=== PATIENT | female | born 1965 | race Caucasian/White ===

== ENCOUNTER 2022-07-05 14:54 | Observation (INO) | payer MEDICAID, SELFPAY ==
[2022-07-05] VITALS (11 sets, daily range): BP systolic 109–149; BP diastolic 64–85; PULSE 70–109; RESP 9–18; TEMP 36.6; O2SAT 2–100; BMI 38.2
--- NOTE | 2022-07-05 15:20 | ECG_ITS ---
Test Reason : FALL Blood Pressure : / mmHG Vent. Rate : 106 BPM Atrial Rate : 106 BPM P-R Int : 170 ms QRS Dur : 114 ms QT Int : 374 ms P-R-T Axes : 050 025 051 degrees QTc Int : 496 ms Sinus tachycardia Incomplete right bundle branch block Cannot rule out Inferior infarct , age undetermined Abnormal ECG No previous ECGs available Referred By: Mery Marvin Electronically Signed By:Scott Valencia
--- NOTE | 2022-07-05 15:27 | PC.NURSE ---
Pt sleepy, arousable to firm sternal rub. Snoring. VSS, placed on 2lpm via nc 93-94%. Collar intact. Sister states pt has been sleepy all day since this AM but came from [facility] assume dpt was tired however tired all day. Vodka spilled where pt found on floor and per sister Catia pt has h/o mixing ETOH with rx meds. Unk if street drug use. Sinus tach on tele. RR 10, [id number] 40
[2022-07-05 16:11] LABS: MANUAL DIFF FLAG NO
[2022-07-05 16:22] LABS: Basophils Percent Auto 0.3 % (0-2); Eosinophils Absolute Auto 0.2 X10*3/uL (0.0-0.4); Eosinophils Percent Auto 1.9 % (0-4); Hematocrit 39.3 % (37.0-47.0); Hemoglobin 13.4 g/dl (12.0-16.0); Imm Gran Abs Auto 0.08 X10*3/uL (0.00-0.03); Imm Gran Pct Auto 0.8 % (0.0-0.4); Lymphocytes Percent Auto 29.7 % (20-40); Mean Corpuscular HGB Conc 34.1 g/dl (31.0-35.0); Mean Corpuscular Hemoglobin 33.2 pg (27.0-33.0); Mean Corpuscular Volume 97.3 fL (80.0-98.0); Mean Platelet Volume 8.4 fL (9.4-12.3); Monocytes Absolute Auto 0.6 X10*3/uL (0.1-1.2); Monocytes Percent Auto 6.4 % (2-11); Neutrophils Absolute Auto 6.1 x10*3/uL (2.0-8.3); Neutrophils Percent Auto 60.9 % (45-73); Platelet Count 219 X10*3/uL (160-400); Red Blood Count 4.04 X10*6/uL (4.20-5.50); White Blood Count 9.9 X10*3/uL (4.8-10.8)
[2022-07-05 16:32] LABS: Acetaminophen LAB < 1 mcg/mL (<30); Salicylate < 5.0 mg/dL (15-30)
[2022-07-05 16:36] LABS: Alanine Aminotransferase 24 U/L (0-31); Albumin Level 4.2 g/dL (3.5-5.0); Alkaline Phosphatase 93 U/L (39-117); Anion Gap 13 (12-20); Aspartate Amino Transferase 22 U/L (5-31); Bilirubin Total 0.3 mg/dL (0.0-1.0); Blood Urea Nitrogen 15 mg/dL (9-16); Calcium 9.4 mg/dL (8.4-10.2); Carbon Dioxide 28 mmol/L (22-29); Chloride 103 mmol/L (96-108); Creatinine Clr Calc Pharmacy 105.5; Estimated Glomerular Filt Rate > 60; Ethanol < 10 mg/dL; Glucose Random 90 mg/dL (60-115); Potassium 3.8 mmol/L (3.3-5.1); Sodium 140 mmol/L (135-145); Total Protein 6.7 g/dL (6.5-8.0)
--- NOTE | 2022-07-05 16:39 | PC.NURSE ---
Pt remains sleepy, requires firm sternal rub to open eyes. NSR on tele, rate 99. Color pwd. Awaiting CT results.
--- NOTE | 2022-07-05 17:32 | ED.AMS ---
HPI - Altered Mental Status General Chief Complaint: Altered Mental Status <Mery Marvin NP - Last Filed: 07/05/22 18:25> Stated Complaint: poss overdose, poss fall per EMS <Mery Marvin NP - Last Filed: 07/05/22 18:25> Time Seen by Provider: 07/05/22 15:18 <Mery Marvin PRESS CLEANER - Last Filed: 07/05/22 18:25> Source: family and EMS <Mery Marvin NP - Last Filed: 07/05/22 18:25> Mode of arrival: EMS <Mery Marvin NP - Last Filed: 07/05/22 18:25> Limitations: altered mental status <Mery Marvin NP - Last Filed: 07/05/22 18:25> History of Present Illness HPI narrative: 56-year-old female with past medical history of insomnia and depression presents to the emergency department by EMS after being found, by her sister, unresponsive on the floor near a broken vodka bottle with vodka spilled on the floor per sister. Her sister states the patient is visiting from the [facility] and arrived early this morning. The patient's neice picked her up from the airport at 3:00 a.m. and the patient was slurring her speech at the time. The sister saw the patient this morning and the patient was acting 'tired' and falling asleep while speaking. She sent her downstairs to take a nap and when she came back up stairs at 12:00 p.m. she continued to act as if she was tired and falling asleep while speaking. The sister states that around 230 she her movement down stairs where her sister was sleeping and went to check on her and found her on the floor unresponsive with a broken vodka bottle. The sister denies any known cardiac, pulmonary, neurological, musculoskeletal history. It is unknown whether she has been recently ill or had sick contacts. <Mery Marvin NP - Last Filed: 07/05/22 18:25> MD complaint: altered mental status <Mery Marvin NP - Last Filed: 07/05/22 18:25> Onset (ago): hour(s) (1) <Mery Marvin NP - Last Filed: 07/05/22 18:25> Timing confirmed by: family member <Mery Marvin NP - Last Filed: 07/05/22 18:25> Consistency of symptoms: constant <Mery Marvin NP - Last Filed: 07/05/22 18:25> Related Data Allergies/Adverse Reactions: Allergies Allergy/AdvReac Type Severity Reaction Status Date / Time Unable to Assess Allergy Verified 07/05/22 15:14 <Mery Marvin NP - Last Filed: 07/05/22 18:25> Review of Systems Review of Systems: Yes Unobtainable due to mental status <Mery Marvin NP - Last Filed: 07/05/22 18:25> PMFSH Past Medical History Source: obtained from family <Mery Marvin NP - Last Filed: 07/05/22 18:25> Social History Social History: Social History Alcohol intake: current Smoked in Last 30 Days: Yes Use of substances other than those prescribed or required for medical reasons: Unknown Advance Directives: No Advance Directives Information Provided: Yes <Mery Marvin NP - Last Filed: 07/05/22 18:25> Physical Exam ED Vital Signs: Vital Signs - 24 hr 07/05/22 15:14 07/05/22 15:25 07/05/22 16:38 Temperature Pulse Rate 109 H 107 H 99 Respiratory Rate 18 12 10 L Blood Pressure 118/67 109/64 118/73 Pulse Oximetry 92 94 2 L Oxygen Delivery Method Room Air Nasal Cannula Nasal Cannula Oxygen Flow Rate 2 2 07/05/22 18:00 07/05/22 18:26 07/05/22 20:42 Temperature 97.8 F Pulse Rate 102 H 105 H 94 Respiratory Rate 10 L 16 9 L Blood Pressure 143/85 H 121/68 127/70 Pulse Oximetry 100 100 95 Oxygen Delivery Method Nasal Cannula Nasal Cannula Nasal Cannula Oxygen Flow Rate 2 2 2 07/05/22 21:17 07/05/22 21:40 07/05/22 22:18 Temperature Pulse Rate 70 Respiratory Rate 11 L 14 11 L Blood Pressure Pulse Oximetry 97 Oxygen Delivery Method Nasal Cannula Oxygen Flow Rate 2 BMI result Body Mass Index 38.2 <Mery Marvin NP - Last Filed: 07/05/22 18:25> Vital Signs - 24 hr 07/05/22 15:14 07/05/22 15:25 07/05/22 16:38 Temperature Pulse Rate 109 H 107 H 99 Respiratory Rate 18 12 10 L Blood Pressure 118/67 109/64 118/73 Pulse Oximetry 92 94 2 L Oxygen Delivery Method Room Air Nasal Cannula Nasal Cannula Oxygen Flow Rate 2 2 07/05/22 18:00 07/05/22 18:26 07/05/22 20:42 Temperature 97.8 F Pulse Rate 102 H 105 H 94 Respiratory Rate 10 L 16 9 L Blood Pressure 143/85 H 121/68 127/70 Pulse Oximetry 100 100 95 Oxygen Delivery Method Nasal Cannula Nasal Cannula Nasal Cannula Oxygen Flow Rate 2 2 2 07/05/22 21:17 07/05/22 21:40 07/05/22 22:18 Temperature Pulse Rate 70 Respiratory Rate 11 L 14 11 L Blood Pressure Pulse Oximetry 97 Oxygen Delivery Method Nasal Cannula Oxygen Flow Rate 2 BMI result Body Mass Index 38.2 <David Robertson PA - Last Filed: 07/05/22 23:21> Const Nutritional Appearance: well nourished <Mery Marvin NP - Last Filed: 07/05/22 18:25> Limitations: altered mental status <Mery Marvin NP - Last Filed: 07/05/22 18:25> HENWV Head: Yes normal to inspection, Yes normocephalic and Yes atraumatic <Mery Marvin NP - Last Filed: 07/05/22 18:25> Ears: hearing grossly normal bilaterally and external ears normal <Mery Marvin NP - Last Filed: 07/05/22 18:25> General nose exam: Normal external nose present and Normal nares present <Mery Marvin NP - Last Filed: 07/05/22 18:25> Face and sinus: Yes normal facial exam and Yes face symmetric <Mery Marvin NP - Last Filed: 07/05/22 18:25> Mouth: Normal oral and palatal mucosa present <Mery Olivernik, PRESS CLEANER - Last Filed: 07/05/22 18:25> Throat: Yes posterior oropharynx normal <Merydeedee Marvin, PRESS CLEANER - Last Filed: 07/05/22 18:25> Eyes General: appearance normal, both eyes and all related structures <Mery Marvin, PRESS CLEANER - Last Filed: 07/05/22 18:25> Visual Brady: normal visual brady by confrontation <Mery Marvin, PRESS CLEANER - Last Filed: 07/05/22 18:25> Alignment and Position: alignment normal <Mery Yon, PRESS CLEANER - Last Filed: 07/05/22 18:25> Periorbital: periorbital findings normal <Mery Yon, PRESS CLEANER - Last Filed: 07/05/22 18:25> Eyelids: Yes eyelids normal <Merydeedee Marvin, PRESS CLEANER - Last Filed: 07/05/22 18:25> Conjunctivae: conjunctivae normal <Merychon Marvin, PRESS CLEANER - Last Filed: 07/05/22 18:25> Sclerae: sclerae normal <Mery Yon, PRESS CLEANER - Last Filed: 07/05/22 18:25> Corneas: corneas normal <Merychon Marvin, PRESS CLEANER - Last Filed: 07/05/22 18:25> Pupils: Equal, round and reactive pupils present <Merydeedee Marvin, PRESS CLEANER - Last Filed: 07/05/22 18:25> EOM: EOMs intact bilaterally <Merydeedee Marvin, PRESS CLEANER - Last Filed: 07/05/22 18:25> Neck Neck: Yes normal visual inspection and Yes no lymphadenopathy <Merychon Mavrin, PRESS CLEANER - Last Filed: 07/05/22 18:25> Chest Chest palpation & inspection: normal inspection of the chest <Merydeedee Marvin, PRESS CLEANER - Last Filed: 07/05/22 18:25> Resp Effort & Inspection: normal respiratory effort <Merydeedee Marvin, PRESS CLEANER - Last Filed: 07/05/22 18:25> Auscultation: clear to auscultation bilaterally, no crackles, no rhonchi and no wheezes <Mery Yon, PRESS CLEANER - Last Filed: 07/05/22 18:25> Cardio Rate: regular rate <Mery Marvin PRESS CLEANER - Last Filed: 07/05/22 18:25> Rhythm: regular rhythm <Merychon Marvin PRESS CLEANER - Last Filed: 07/05/22 18:25> GI Inspection: Yes normal to inspection <Mery Marvin PRESS CLEANER - Last Filed: 07/05/22 18:25> Palpation (GI): Soft to palpation <Merydeedee Marvin PRESS CLEANER - Last Filed: 07/05/22 18:25> Auscultation: normal bowel sounds <Mery Marvin PRESS CLEANER - Last Filed: 07/05/22 18:25> Back/Spine/Pelvis Back: No erythema, No warmth and No ecchymosis <Mery Marvin PRESS CLEANER - Last Filed: 07/05/22 18:25> Skin General skin exam: no rashes or lesions noted <Mery Marvin PRESS CLEANER - Last Filed: 07/05/22 18:25> Neuro Cranial nerves: Yes Equal, round and reactive pupils present <Mery Marvin PRESS CLEANER - Last Filed: 07/05/22 18:25> Course Course Course Narrative: 1525: Poison control contacted regarding possible Amitriptyline ingestion with recommendations given. 1645: Sister at bedside with pt's medications. Bottle with Amitriptyline with greater than 100 pills with Oxycodone mixed in the bottle. Empty package of Zopiclone brought in with pt's belongings. Contacted poison Control regarding Amitriptyline, Oxycodone, and Zopiclone ingestion. Recommended to continue monitoring serial EKGs every 2 hours. Discussed giving pt Narcan with Poison Control with concern of sending patient into withdrawl symptoms. 1745: Patient straight cathed to obtain urinalysis and BILL. Patient more responsive to stimuli, however; falls asleep quickly and is unable to answer questions due to level of somnolence. 1810: Sign out given to Hanna RODRIGUEZ with no unanswered questions. <Mery Marvin PRESS CLEANER - Last Filed: 07/05/22 18:25> Reevaluation(s) Reevaluation #1: I took over care for patient, patient responded well to Narcan. Her QTC was slightly prolonged therefore I gave magnesium. I also given amp of bicarb. Patient is awake, alert and oriented x4. Agreeable to admission. Patient will be admitted to the hospitalist <MICHAEL Rico - Last Filed: 07/05/22 23:21> Time: 23:21 <MICHAEL Rico - Last Filed: 07/05/22 23:21> Medications Administered Discontinued Medications Generic Name Dose Route Start Last Admin Trade Name Freq PRN Reason Stop Dose Admin Magnesium Sulfate 2 gm in 50 mls @ 25 mls/hr 07/05/22 20:54 07/05/22 21:15 Magnesium Sulfate/H2o IV 07/05/22 22:53 25 mls/hr ONCE ONE Administration Naloxone HCl 4 mg 07/05/22 18:12 07/05/22 18:27 Naloxone Hcl Nasal 4 Mg [place] NOSTRILALT 07/05/22 18:13 Not Given ONCE ONE Naloxone HCl 0.4 mg 07/05/22 18:25 07/05/22 18:27 Naloxone Hcl 0.4 Mg/Ml Vial IVPUSH 07/05/22 18:26 0.4 mg ONCE ONE Administration Naloxone HCl 0.4 mg 07/05/22 20:53 07/05/22 21:07 Naloxone Hcl 0.4 Mg/Ml Vial IVPUSH 07/05/22 20:54 0.4 mg STAT STA Administration Sodium Bicarbonate 50 meq 07/05/22 20:53 07/05/22 21:09 Sodium Bicarbonate 8.4% 50 Meq/50 Ml Syringe IVPUSH 07/05/22 20:54 50 meq ONCE ONE Administration <Mery Marvin NP - Last Filed: 07/05/22 18:25> Medications Administered Discontinued Medications Generic Name Dose Route Start Last Admin Trade Name Freq PRN Reason Stop Dose Admin Magnesium Sulfate 2 gm in 50 mls @ 25 mls/hr 07/05/22 20:54 07/05/22 21:15 Magnesium Sulfate/H2o IV 07/05/22 22:53 25 mls/hr ONCE ONE Administration Naloxone HCl 4 mg 07/05/22 18:12 07/05/22 18:27 Naloxone Hcl Nasal 4 Mg [place] NOSTRILALT 07/05/22 18:13 Not Given ONCE ONE Naloxone HCl 0.4 mg 07/05/22 18:25 07/05/22 18:27 Naloxone Hcl 0.4 Mg/Ml Vial IVPUSH 07/05/22 18:26 0.4 mg ONCE ONE Administration Naloxone HCl 0.4 mg 07/05/22 20:53 07/05/22 21:07 Naloxone Hcl 0.4 Mg/Ml Vial IVPUSH 07/05/22 20:54 0.4 mg STAT STA Administration Sodium Bicarbonate 50 meq 07/05/22 20:53 07/05/22 21:09 Sodium Bicarbonate 8.4% 50 Meq/50 Ml Syringe IVPUSH 07/05/22 20:54 50 meq ONCE ONE Administration <MICHAEL Rico - Last Filed: 07/05/22 23:21> Medical Decision Making Medical Decision Making [facility] Narrative: 56-year-old female with past medical history of insomnia and depression presents to the emergency department by EMS after being found, by her sister, unresponsive on the floor near a broken vodka bottle with vodka spilled on the floor per sister. Poison control contacted regarding possible toxic ingestion with recommendations give. EKG showing sinus tachycardia with incomplete right bundle-branch block QRS duration 114 QTC 496. Per poison Control will continue serial EKGs every 2 hours. Discuss given Narcan with Poison Control with concern of patient in to withdrawl symptoms. CT head and cervical spine with no acute intracranial finding, no fracture or malalignment of the cervical spine, mild degenerative change. Chest xray showing hypo inflation, no pneumonia or edema. Hematology and chemistry unremarkable. Urinalysis showing no infectious process. Urine salicylates, acetaminophen, and ethyl alcohol on concerning. BILL positive for opioids and cocaine. Narcan to be given. Pending repeat EKG at this time. <Mery Marvin NP - Last Filed: 07/05/22 18:25> Lab Data [facility] Lab Attestation statement: I reviewed the patient's lab results. <Mery Marvin NP - Last Filed: 07/05/22 18:25> Result Diagrams: : 07/05/22 16:07 07/05/22 16:07 <Mery Marvin NP - Last Filed: 07/05/22 18:25> Labs: Lab Results 07/05/22 07/05/22 07/05/22 Range/Units 15:31 16:07 16:07 WBC 9.9 (4.8-10.8) X10*3/uL RBC 4.04 L (4.20-5.50) X10*6/uL Hgb 13.4 (12.0-16.0) g/dl Hct 39.3 (37.0-47.0) % MCV 97.3 (80.0-98.0) fL MCH 33.2 H (27.0-33.0) pg MCHC 34.1 (31.0-35.0) g/dl RDW 13.0 (11.0-16.0) % Plt Count 219 (160-400) X10*3/uL MPV 8.4 L (9.4-12.3) fL Immature Gran % (Auto) 0.8 H (0.0-0.4) % Neut % (Auto) 60.9 (45-73) % Lymph % (Auto) 29.7 (20-40) % Lea % (Auto) 6.4 (2-11) % Eos % (Auto) 1.9 (0-4) % Baso % (Auto) 0.3 (0-2) % Lymph # (Auto) 3.0 (1.2-4.9) X10*3/uL [place] # (Auto) 0.6 (0.1-1.2) X10*3/uL Eos # (Auto) 0.2 (0.0-0.4) X10*3/uL Baso # (Auto) 0.0 (0.0-0.2) X10*3/uL Abs Immat Gran (auto) 0.08 H (0.00-0.03) X10*3/uL Absolute Neuts (auto) 6.1 (2.0-8.3) x10*3/uL Absolute Nucleated RBC 0.000 (0.0-0.012) X10*3/uL Nucleated RBC % (auto) 0.0 (0.0-0.2) /100WBC O2 Saturation % ABG pH at Pt Temp (7.35-7.45) ABG pCO2 at Pt Temp (32-45) mmHg ABG pO2 at Pt Temp (83-108) mmHg ABG HCO3 (22-26) mmol/L ABG Base Excess (Actual) mmol/L VBG pH (7.32-7.43) VBG pCO2 mmHg VBG pO2 mmHg VBG HCO3 (22-26) mmol/L VBG O2 Saturation % VBG Base Excess mmol/L Sodium 140 (135-145) mmol/L Potassium 3.8 (3.3-5.1) mmol/L Chloride 103 (96-108) mmol/L Carbon Dioxide 28 (22-29) mmol/L Anion Gap 13 (12-20) BUN 15 (9-16) mg/dL Creatinine 0.78 (0.5-1.4) mg/dL Estim Creat Clear Calc 105.5 Estimated GFR > 60 POC Glucose 106 (60-115) mg/dL Random Glucose 90 (60-115) mg/dL Calcium 9.4 (8.4-10.2) mg/dL Magnesium 2.0 (1.6-2.6) mg/dL Total Bilirubin 0.3 (0.0-1.0) mg/dL AST 22 (5-31) U/L ALT 24 (0-31) U/L Alkaline Phosphatase 93 (39-117) U/L Total Creatine Kinase 138 (26-140) U/L Total Protein 6.7 (6.5-8.0) g/dL Albumin 4.2 (3.5-5.0) g/dL Urine Color Urine Appearance Urine pH (5.0-9.0) Ur Specific [place] (1.005-1.025) Urine Protein (Neg-Trace) mg/dL Urine Glucose (UA) (Negative) mg/dL Urine Ketones (Negative) mg/dL Urine Blood (Negative) Urine Nitrite (Negative) Ur Leukocyte Esterase (Negative) Salicylates (15-30) mg/dL Urine Opiates Screen (Not Detect) Urine Fentanyl Screen (Not Detect) Acetaminophen (<30) mcg/mL Ur Barbiturates Screen (Not Detect) Ur Phencyclidine Scrn (Not Detect) Ur Amphetamines Screen (Not Detect) U Benzodiazepines Scrn (Not Detect) Urine Cocaine Screen (Not Detect) U Marijuana (THC) Screen (Not Detect) Ethyl Alcohol < 10 mg/dL 07/05/22 07/05/22 07/05/22 Range/Units 16:07 17:54 17:54 WBC (4.8-10.8) X10*3/uL RBC (4.20-5.50) X10*6/uL Hgb (12.0-16.0) g/dl Hct (37.0-47.0) % MCV (80.0-98.0) fL MCH (27.0-33.0) pg MCHC (31.0-35.0) g/dl RDW (11.0-16.0) % Plt Count (160-400) X10*3/uL MPV (9.4-12.3) fL Immature Gran % (Auto) (0.0-0.4) % Neut % (Auto) (45-73) % Lymph % (Auto) (20-40) % Lea % (Auto) (2-11) % Eos % (Auto) (0-4) % Baso % (Auto) (0-2) % Lymph # (Auto) (1.2-4.9) X10*3/uL [place] # (Auto) (0.1-1.2) X10*3/uL Eos # (Auto) (0.0-0.4) X10*3/uL Baso # (Auto) (0.0-0.2) X10*3/uL Abs Immat Gran (auto) (0.00-0.03) X10*3/uL Absolute Neuts (auto) (2.0-8.3) x10*3/uL Absolute Nucleated RBC (0.0-0.012) X10*3/uL Nucleated RBC % (auto) (0.0-0.2) /100WBC O2 Saturation % ABG pH at Pt Temp (7.35-7.45) ABG pCO2 at Pt Temp (32-45) mmHg ABG pO2 at Pt Temp (83-108) mmHg ABG HCO3 (22-26) mmol/L ABG Base Excess (Actual) mmol/L VBG pH (7.32-7.43) VBG pCO2 mmHg VBG pO2 mmHg VBG HCO3 (22-26) mmol/L VBG O2 Saturation % VBG Base Excess mmol/L Sodium (135-145) mmol/L Potassium (3.3-5.1) mmol/L Chloride (96-108) mmol/L Carbon Dioxide (22-29) mmol/L Anion Gap (12-20) BUN (9-16) mg/dL Creatinine (0.5-1.4) mg/dL Estim Creat Clear Calc Estimated GFR POC Glucose (60-115) mg/dL Random Glucose (60-115) mg/dL Calcium (8.4-10.2) mg/dL Magnesium (1.6-2.6) mg/dL Total Bilirubin (0.0-1.0) mg/dL AST (5-31) U/L ALT (0-31) U/L Alkaline Phosphatase (39-117) U/L Total Creatine Kinase (26-140) U/L Total Protein (6.5-8.0) g/dL Albumin (3.5-5.0) g/dL Urine Color Yellow Urine Appearance Clear Urine pH 5.5 (5.0-9.0) Ur Specific [place] 1.010 (1.005-1.025) Urine Protein Negative (Neg-Trace) mg/dL Urine Glucose (UA) Negative (Negative) mg/dL Urine Ketones Negative (Negative) mg/dL Urine Blood Negative (Negative) Urine Nitrite Negative (Negative) Ur Leukocyte Esterase Negative (Negative) Salicylates < 5.0 L (15-30) mg/dL Urine Opiates Screen POSITIVE H (Not Detect) Urine Fentanyl Screen Not Detected (Not Detect) Acetaminophen < 1 (<30) mcg/mL Ur Barbiturates Screen Not Detected (Not Detect) Ur Phencyclidine Scrn Not Detected (Not Detect) Ur Amphetamines Screen Not Detected (Not Detect) U Benzodiazepines Scrn Not Detected (Not Detect) Urine Cocaine Screen POSITIVE H (Not Detect) U Marijuana (THC) Screen Not Detected (Not Detect) Ethyl Alcohol mg/dL 07/05/22 07/05/22 Range/Units 21:08 22:41 WBC (4.8-10.8) X10*3/uL RBC (4.20-5.50) X10*6/uL Hgb (12.0-16.0) g/dl Hct (37.0-47.0) % MCV (80.0-98.0) fL MCH (27.0-33.0) pg MCHC (31.0-35.0) g/dl RDW (11.0-16.0) % Plt Count (160-400) X10*3/uL MPV (9.4-12.3) fL Immature Gran % (Auto) (0.0-0.4) % Neut % (Auto) (45-73) % Lymph % (Auto) (20-40) % Lea % (Auto) (2-11) % Eos % (Auto) (0-4) % Baso % (Auto) (0-2) % Lymph # (Auto) (1.2-4.9) X10*3/uL Lea # (Auto) (0.1-1.2) X10*3/uL Eos # (Auto) (0.0-0.4) X10*3/uL Baso # (Auto) (0.0-0.2) X10*3/uL Abs Immat Gran (auto) (0.00-0.03) X10*3/uL Absolute Neuts (auto) (2.0-8.3) x10*3/uL Absolute Nucleated RBC (0.0-0.012) X10*3/uL Nucleated RBC % (auto) (0.0-0.2) /100WBC O2 Saturation 94.0 % ABG pH at Pt Temp 7.43 (7.35-7.45) ABG pCO2 at Pt Temp 38 (32-45) mmHg ABG pO2 at Pt Temp 77 L (83-108) mmHg ABG HCO3 26 (22-26) mmol/L ABG Base Excess (Actual) 1.9 mmol/L VBG pH 7.34 (7.32-7.43) VBG pCO2 52 mmHg VBG pO2 50 mmHg VBG HCO3 28 H (22-26) mmol/L VBG O2 Saturation 80.0 % VBG Base Excess 2.2 mmol/L Sodium (135-145) mmol/L Potassium (3.3-5.1) mmol/L Chloride (96-108) mmol/L Carbon Dioxide (22-29) mmol/L Anion Gap (12-20) BUN (9-16) mg/dL Creatinine (0.5-1.4) mg/dL Estim Creat Clear Calc Estimated GFR POC Glucose (60-115) mg/dL Random Glucose (60-115) mg/dL Calcium (8.4-10.2) mg/dL Magnesium (1.6-2.6) mg/dL Total Bilirubin (0.0-1.0) mg/dL AST (5-31) U/L ALT (0-31) U/L Alkaline Phosphatase (39-117) U/L Total Creatine Kinase (26-140) U/L Total Protein (6.5-8.0) g/dL Albumin (3.5-5.0) g/dL Urine Color Urine Appearance Urine pH (5.0-9.0) Ur Specific [place] (1.005-1.025) Urine Protein (Neg-Trace) mg/dL Urine Glucose (UA) (Negative) mg/dL Urine Ketones (Negative) mg/dL Urine Blood (Negative) Urine Nitrite (Negative) Ur Leukocyte Esterase (Negative) Salicylates (15-30) mg/dL Urine Opiates Screen (Not Detect) Urine Fentanyl Screen (Not Detect) Acetaminophen (<30) mcg/mL Ur Barbiturates Screen (Not Detect) Ur Phencyclidine Scrn (Not Detect) Ur Amphetamines Screen (Not Detect) U Benzodiazepines Scrn (Not Detect) Urine Cocaine Screen (Not Detect) U Marijuana (THC) Screen (Not Detect) Ethyl Alcohol mg/dL <Mery Marvin NP - Last Filed: 07/05/22 18:25> Lab Results 07/05/22 07/05/22 07/05/22 Range/Units 15:31 16:07 16:07 WBC 9.9 (4.8-10.8) X10*3/uL RBC 4.04 L (4.20-5.50) X10*6/uL Hgb 13.4 (12.0-16.0) g/dl Hct 39.3 (37.0-47.0) % MCV 97.3 (80.0-98.0) fL MCH 33.2 H (27.0-33.0) pg MCHC 34.1 (31.0-35.0) g/dl RDW 13.0 (11.0-16.0) % Plt Count 219 (160-400) X10*3/uL MPV 8.4 L (9.4-12.3) fL Immature Gran % (Auto) 0.8 H (0.0-0.4) % Neut % (Auto) 60.9 (45-73) % Lymph % (Auto) 29.7 (20-40) % [place] % (Auto) 6.4 (2-11) % Eos % (Auto) 1.9 (0-4) % Baso % (Auto) 0.3 (0-2) % Lymph # (Auto) 3.0 (1.2-4.9) X10*3/uL [place] # (Auto) 0.6 (0.1-1.2) X10*3/uL Eos # (Auto) 0.2 (0.0-0.4) X10*3/uL Baso # (Auto) 0.0 (0.0-0.2) X10*3/uL Abs Immat Gran (auto) 0.08 H (0.00-0.03) X10*3/uL Absolute Neuts (auto) 6.1 (2.0-8.3) x10*3/uL Absolute Nucleated RBC 0.000 (0.0-0.012) X10*3/uL Nucleated RBC % (auto) 0.0 (0.0-0.2) /100WBC O2 Saturation % ABG pH at Pt Temp (7.35-7.45) ABG pCO2 at Pt Temp (32-45) mmHg ABG pO2 at Pt Temp (83-108) mmHg ABG HCO3 (22-26) mmol/L ABG Base Excess (Actual) mmol/L VBG pH (7.32-7.43) VBG pCO2 mmHg VBG pO2 mmHg VBG HCO3 (22-26) mmol/L VBG O2 Saturation % VBG Base Excess mmol/L Sodium 140 (135-145) mmol/L Potassium 3.8 (3.3-5.1) mmol/L Chloride 103 (96-108) mmol/L Carbon Dioxide 28 (22-29) mmol/L Anion Gap 13 (12-20) BUN 15 (9-16) mg/dL Creatinine 0.78 (0.5-1.4) mg/dL Estim Creat Clear Calc 105.5 Estimated GFR > 60 POC Glucose 106 (60-115) mg/dL Random Glucose 90 (60-115) mg/dL Calcium 9.4 (8.4-10.2) mg/dL Magnesium 2.0 (1.6-2.6) mg/dL Total Bilirubin 0.3 (0.0-1.0) mg/dL AST 22 (5-31) U/L ALT 24 (0-31) U/L Alkaline Phosphatase 93 (39-117) U/L Total Creatine Kinase 138 (26-140) U/L Total Protein 6.7 (6.5-8.0) g/dL Albumin 4.2 (3.5-5.0) g/dL Urine Color Urine Appearance Urine pH (5.0-9.0) Ur Specific [place] (1.005-1.025) Urine Protein (Neg-Trace) mg/dL Urine Glucose (UA) (Negative) mg/dL Urine Ketones (Negative) mg/dL Urine Blood (Negative) Urine Nitrite (Negative) Ur Leukocyte Esterase (Negative) Salicylates (15-30) mg/dL Urine Opiates Screen (Not Detect) Urine Fentanyl Screen (Not Detect) Acetaminophen (<30) mcg/mL Ur Barbiturates Screen (Not Detect) Ur Phencyclidine Scrn (Not Detect) Ur Amphetamines Screen (Not Detect) U Benzodiazepines Scrn (Not Detect) Urine Cocaine Screen (Not Detect) U Marijuana (THC) Screen (Not Detect) Ethyl Alcohol < 10 mg/dL 07/05/22 07/05/22 07/05/22 Range/Units 16:07 17:54 17:54 WBC (4.8-10.8) X10*3/uL RBC (4.20-5.50) X10*6/uL Hgb (12.0-16.0) g/dl Hct (37.0-47.0) % MCV (80.0-98.0) fL MCH (27.0-33.0) pg MCHC (31.0-35.0) g/dl RDW (11.0-16.0) % Plt Count (160-400) X10*3/uL MPV (9.4-12.3) fL Immature Gran % (Auto) (0.0-0.4) % Neut % (Auto) (45-73) % Lymph % (Auto) (20-40) % [place] % (Auto) (2-11) % Eos % (Auto) (0-4) % Baso % (Auto) (0-2) % Lymph # (Auto) (1.2-4.9) X10*3/uL Lea # (Auto) (0.1-1.2) X10*3/uL Eos # (Auto) (0.0-0.4) X10*3/uL Baso # (Auto) (0.0-0.2) X10*3/uL Abs Immat Gran (auto) (0.00-0.03) X10*3/uL Absolute Neuts (auto) (2.0-8.3) x10*3/uL Absolute Nucleated RBC (0.0-0.012) X10*3/uL Nucleated RBC % (auto) (0.0-0.2) /100WBC O2 Saturation % ABG pH at Pt Temp (7.35-7.45) ABG pCO2 at Pt Temp (32-45) mmHg ABG pO2 at Pt Temp (83-108) mmHg ABG HCO3 (22-26) mmol/L ABG Base Excess (Actual) mmol/L VBG pH (7.32-7.43) VBG pCO2 mmHg VBG pO2 mmHg VBG HCO3 (22-26) mmol/L VBG O2 Saturation % VBG Base Excess mmol/L Sodium (135-145) mmol/L Potassium (3.3-5.1) mmol/L Chloride (96-108) mmol/L Carbon Dioxide (22-29) mmol/L Anion Gap (12-20) BUN (9-16) mg/dL Creatinine (0.5-1.4) mg/dL Estim Creat Clear Calc Estimated GFR POC Glucose (60-115) mg/dL Random Glucose (60-115) mg/dL Calcium (8.4-10.2) mg/dL Magnesium (1.6-2.6) mg/dL Total Bilirubin (0.0-1.0) mg/dL AST (5-31) U/L ALT (0-31) U/L Alkaline Phosphatase (39-117) U/L Total Creatine Kinase (26-140) U/L Total Protein (6.5-8.0) g/dL Albumin (3.5-5.0) g/dL Urine Color Yellow Urine Appearance Clear Urine pH 5.5 (5.0-9.0) Ur Specific [place] 1.010 (1.005-1.025) Urine Protein Negative (Neg-Trace) mg/dL Urine Glucose (UA) Negative (Negative) mg/dL Urine Ketones Negative (Negative) mg/dL Urine Blood Negative (Negative) Urine Nitrite Negative (Negative) Ur Leukocyte Esterase Negative (Negative) Salicylates < 5.0 L (15-30) mg/dL Urine Opiates Screen POSITIVE H (Not Detect) Urine Fentanyl Screen Not Detected (Not Detect) Acetaminophen < 1 (<30) mcg/mL Ur Barbiturates Screen Not Detected (Not Detect) Ur Phencyclidine Scrn Not Detected (Not Detect) Ur Amphetamines Screen Not Detected (Not Detect) U Benzodiazepines Scrn Not Detected (Not Detect) Urine Cocaine Screen POSITIVE H (Not Detect) U Marijuana (THC) Screen Not Detected (Not Detect) Ethyl Alcohol mg/dL 07/05/22 07/05/22 Range/Units 21:08 22:41 WBC (4.8-10.8) X10*3/uL RBC (4.20-5.50) X10*6/uL Hgb (12.0-16.0) g/dl Hct (37.0-47.0) % MCV (80.0-98.0) fL MCH (27.0-33.0) pg MCHC (31.0-35.0) g/dl RDW (11.0-16.0) % Plt Count (160-400) X10*3/uL MPV (9.4-12.3) fL Immature Gran % (Auto) (0.0-0.4) % Neut % (Auto) (45-73) % Lymph % (Auto) (20-40) % [place]a % (Auto) (2-11) % Eos % (Auto) (0-4) % Baso % (Auto) (0-2) % Lymph # (Auto) (1.2-4.9) X10*3/uL [place]a # (Auto) (0.1-1.2) X10*3/uL Eos # (Auto) (0.0-0.4) X10*3/uL Baso # (Auto) (0.0-0.2) X10*3/uL Abs Immat Gran (auto) (0.00-0.03) X10*3/uL Absolute Neuts (auto) (2.0-8.3) x10*3/uL Absolute Nucleated RBC (0.0-0.012) X10*3/uL Nucleated RBC % (auto) (0.0-0.2) /100WBC O2 Saturation 94.0 % ABG pH at Pt Temp 7.43 (7.35-7.45) ABG pCO2 at Pt Temp 38 (32-45) mmHg ABG pO2 at Pt Temp 77 L (83-108) mmHg ABG HCO3 26 (22-26) mmol/L ABG Base Excess (Actual) 1.9 mmol/L VBG pH 7.34 (7.32-7.43) VBG pCO2 52 mmHg VBG pO2 50 mmHg VBG HCO3 28 H (22-26) mmol/L VBG O2 Saturation 80.0 % VBG Base Excess 2.2 mmol/L Sodium (135-145) mmol/L Potassium (3.3-5.1) mmol/L Chloride (96-108) mmol/L Carbon Dioxide (22-29) mmol/L Anion Gap (12-20) BUN (9-16) mg/dL Creatinine (0.5-1.4) mg/dL Estim Creat Clear Calc Estimated GFR POC Glucose (60-115) mg/dL Random Glucose (60-115) mg/dL Calcium (8.4-10.2) mg/dL Magnesium (1.6-2.6) mg/dL Total Bilirubin (0.0-1.0) mg/dL AST (5-31) U/L ALT (0-31) U/L Alkaline Phosphatase (39-117) U/L Total Creatine Kinase (26-140) U/L Total Protein (6.5-8.0) g/dL Albumin (3.5-5.0) g/dL Urine Color Urine Appearance Urine pH (5.0-9.0) Ur Specific [place] (1.005-1.025) Urine Protein (Neg-Trace) mg/dL Urine Glucose (UA) (Negative) mg/dL Urine Ketones (Negative) mg/dL Urine Blood (Negative) Urine Nitrite (Negative) Ur Leukocyte Esterase (Negative) Salicylates (15-30) mg/dL Urine Opiates Screen (Not Detect) Urine Fentanyl Screen (Not Detect) Acetaminophen (<30) mcg/mL Ur Barbiturates Screen (Not Detect) Ur Phencyclidine Scrn (Not Detect) Ur Amphetamines Screen (Not Detect) U Benzodiazepines Scrn (Not Detect) Urine Cocaine Screen (Not Detect) U Marijuana (THC) Screen (Not Detect) Ethyl Alcohol mg/dL <MICHAEL Rico - Last Filed: 07/05/22 23:21> Radiology Impression Discussion of test interpretation with radiology: I have reviewed the radiologist's reading. <Mery Marvin NP - Last Filed: 07/05/22 18:25> Radiologist Impression: EXAMINATION: NONCONTRAST HEAD CT NONCONTRAST CERVICAL SPINE CT INDICATION INFORMATION: Fall. Altered mental status. COMPARISON: None TECHNIQUE: Separate noncontrast CT examinations of the head and cervical spine were performed. Coronal and sagittal images were created for each examination at the technologist workstation. This CT examination was performed using dose optimization techniques as appropriate, variously including the following: *Automated exposure control *Adjustment of mA and/or kV according to patient size (this includes techniques or standardized protocols for targeted exams where dose is matched to indication/reason for exam; i.e. extremities or head) *Use of iterative reconstruction technique DLP: 1212 mGy-cm FINDINGS: Head: There is no evidence of acute intracranial hemorrhage or territorial infarction. No abnormal mass effect or midline shift is seen. Oh to white matter differentiation is well preserved. No extra-axial fluid collections are identified. No hydrocephalus. No significant volume loss. There is no abnormal attenuation within the brain parenchyma. No acute osseous or soft tissue abnormality. The mastoid air cells and visualized portions of the paranasal sinuses are well aerated. Cervical spine: There is anatomic alignment of the vertebral bodies and posterior elements. The atlantoaxial and atlantooccipital articulations are intact. Vertebral body heights and intervertebral disc spaces are maintained. Small endplate osteophytes throughout. No evidence of acute fracture. No prevertebral soft tissue swelling. Visualized portions of the lung apices are unremarkable. The thyroid gland is unremarkable. CT/CT head/brain wo IV con IMPRESSION: 1.? No acute intracranial finding. 2.? No fracture or malalignment of the cervical spine. Mild degenerative change. ? Dictated By: Martillotti,Cory M MD Signed By: <Electronically signed by Cory Beavers MD in OV> 07/05/22 1636 DD/ 1555 TD/TT:? Sander Hand: MARIZA <Mery Marvin NP - Last Filed: 07/05/22 18:25> Critical Care Time Critical Care Time Critical Care Time: No <MICHAEL Rico - Last Filed: 07/05/22 23:21> Discharge Plan Discharge Clinical Impression: Overdose <Mery Marvin NP - Last Filed: 07/05/22 18:25> Patient Disposition: Admitted As Inpatient <Mery Marvin NP - Last Filed: 07/05/22 18:25>
--- NOTE | 2022-07-05 17:52 | ECG_ITS ---
Test Reason : REPEAT Blood Pressure : / mmHG Vent. Rate : 107 BPM Atrial Rate : 107 BPM P-R Int : 160 ms QRS Dur : 110 ms QT Int : 388 ms P-R-T Axes : 065 039 054 degrees QTc Int : 517 ms Sinus tachycardia Incomplete right bundle branch block Nonspecific T wave abnormality Abnormal ECG When compared with ECG of 05-JUL-2022 15:31, Minimal criteria for Inferior infarct are no longer Present Referred By: Mery Marvin Electronically Signed By:Scott Valencia
--- NOTE | 2022-07-05 18:01 | PC.NURSE ---
Pt straight cath for urine spec. Pt did lift head and open eyes during cath. Also lifted hips to assist to take off pants. Vitals stable. Sister remains at bedside. Snoring resp [id number], some episodes of apnea noted.
[2022-07-05 18:06] LABS: Appearance Urine Clear; Color Urine Yellow; Glucose Urine UA Negative (Negative); Leukocyte Esterase Urine Negative (Negative); Nitrite Urine Negative (Negative); PH 5.5 (5.0-9.0); Urine Blood Negative (Negative); Urine Ketones Negative (Negative); Urine Protein Negative (Neg-Trace)
--- NOTE | 2022-07-05 18:12 | PC.NURSE ---
MICHAEL Ordonez in contact with poison control, repeat EKG needed at this time
[2022-07-05 18:16] LABS: Amphetamine Screen Urine Not Detected (Not Detect); Barbiturates, Urine Not Detected (Not Detect); Benzodiazepines Screen Urine Not Detected (Not Detect); Cannabinoid Screen Urine Not Detected (Not Detect); Cocaine Screen Urine POSITIVE (Not Detect); Fentanyl, urine Not Detected (Not Detect); Opiate Screen Urine POSITIVE (Not Detect); Phencyclidine Screen Urine Not Detected (Not Detect)
--- NOTE | 2022-07-05 18:25 | PC.NURSE ---
Narcan 0.4mg IVP given, pt with +response, eyes open, talking with sister at bedside. alert/oriented. Repeat EKG completed
[2022-07-05] MEDS: Naloxone HCl 0.4 MG/ML VIAL IVPUSH ×2 (18:27→21:07)
--- NOTE | 2022-07-05 20:37 | ECG_ITS ---
Test Reason : per poison control Blood Pressure : / mmHG Vent. Rate : 093 BPM Atrial Rate : 093 BPM P-R Int : 160 ms QRS Dur : 108 ms QT Int : 404 ms P-R-T Axes : 054 015 049 degrees QTc Int : 502 ms Normal sinus rhythm Incomplete right bundle branch block Nonspecific T wave changes Prolonged QT Abnormal ECG When compared with ECG of 05-JUL-2022 18:20, No significant change was found Referred By: Generic ED Physician Electronically Signed By:Scott Valencia
[2022-07-05] MEDS: Sodium Bicarbonate 8.4% 50 MEQ/50 ML SYRINGE IVPUSH (21:09)
[2022-07-05] MEDS: Magnesium Sulfate/H2O 2 GM/50 ML PIGGYBACK IV (21:15)
--- NOTE | 2022-07-05 21:19 | PC.NURSE ---
pt medicated according to sep. pt A+O x 4.SpO2 100% 2 LPM NC. RR 11 non labored. sister remains at bedside
--- NOTE | 2022-07-05 22:30 | ECG_ITS ---
Test Reason : QT Blood Pressure : / mmHG Vent. Rate : 099 BPM Atrial Rate : 099 BPM P-R Int : 162 ms QRS Dur : 108 ms QT Int : 402 ms P-R-T Axes : 051 015 052 degrees QTc Int : 515 ms Normal sinus rhythm Incomplete right bundle branch block Nonspecific T wave changes Prolonged QT Abnormal ECG When compared with ECG of 05-JUL-2022 20:44, No significant change was found Referred By: Ron Machado Electronically Signed By:Scott Valencia
--- NOTE | 2022-07-05 22:32 | PM.IMHP ---
History of Present Illness Date of Service: 07/05/22 Chief Complaint: Accidental overdose This is a 56-year-old female with past medical history of trigeminal neurology, insomnia, presents to the hospital after sister found her to be unresponsive. Patient lives in the [facility], and is here visiting her sister. According to the sister she also found bottles of alcohol as well as her medication bottles including amitriptyline, and her sleep medication ( similar to lunesta). Patient currently lethargic, but arousable, answers questions appropriately. Reports having taken 3 pills on amitriptyline because she had difficulty falling asleep, as well as her sleep medication about 2 of them. Denies using any illicit drugs, denies drinking alcohol. Reports no chest pain, no dizziness, no headache, no change in vision, no shortness of breath no abdominal pain nausea or vomiting, no diarrhea constipation, LUCINA symptoms and lower extremity edema. Patient adamantly denies that she tried to hurt herself, reports no suicidal or homicidal ideation On arrival to the ED patient hemodynamically stable with slightly elevated heart rate Labs are significant for WBC count of 8.3, labs otherwise unremarkable Urine drug screen is positive for cocaine, opioids, alcohol level less than 10. Head CT shows no acute intracranial finding Chest x-ray shows no pneumonia or edema Poison control contacted, patient did have slightly increased QT that went from 496 to 517and they recommended magnesium and potassium infusions Review of Systems Review of Systems: Yes all other systems are reviewed and are negative [facility] Medical History Chronic pain Insomnia Trigeminal neuralgia Family History Other No family history of coronary artery disease Surgical History No pertinent past surgical history Social History (Updated 07/06/22 @ 06:31 by Ron Machado MD) Alcohol intake: current Patient Tobacco Use Status: Current everyday Tobacco user Smoked in Last 30 Days: Yes Use of substances other than those prescribed or required for medical reasons: No Advance Directives: No Advance Directives Information Provided: Yes Meds Allergies Allergy/AdvReac Type Severity Reaction Status Date / Time Unable to Assess Allergy Verified 07/05/22 15:14 Active Medications: Current Medications Magnesium Sulfate (Magnesium Sulfate/H2o) 2 gm in 50 mls @ 25 mls/hr IV ONCE ONE Stop: 07/05/22 22:53 Last Admin: 07/05/22 21:15 Dose: 25 mls/hr Physical Exam Vital Signs and Narrative: Vital Signs: Last Vital Signs Temp 97.8 F 07/05/22 20:42 Pulse 70 07/05/22 22:18 Resp 11 L 07/05/22 22:18 BP 127/70 07/05/22 20:42 Pulse Ox 97 07/05/22 22:18 O2 Del Method 07/05/22 22:18 O2 Flow Rate 2 07/05/22 22:18 BMI result Body Mass Index 38.2 Results Labs CBC and Chem 7: 07/06/22 05:37 07/06/22 05:37 Labs: Laboratory Results - last 24 hr 07/05/22 07/05/22 07/05/22 15:31 16:07 16:07 MCV 97.3 MCH 33.2 H MCHC 34.1 RDW 13.0 Plt Count 219 MPV 8.4 L Immature Gran % (Auto) 0.8 H Neut % (Auto) 60.9 Lymph % (Auto) 29.7 [place]hing % (Auto) 6.4 Eos % (Auto) 1.9 Baso % (Auto) 0.3 Lymph # (Auto) 3.0 [place] # (Auto) 0.6 Eos # (Auto) 0.2 Baso # (Auto) 0.0 Abs Immat Gran (auto) 0.08 H Absolute Neuts (auto) 6.1 Absolute Nucleated RBC 0.000 Nucleated RBC % (auto) 0.0 VBG pH VBG pCO2 VBG pO2 VBG HCO3 VBG O2 Saturation VBG Base Excess Anion Gap 13 Estim Creat Clear Calc 105.5 Estimated GFR > 60 POC Glucose 106 Random Glucose 90 Calcium 9.4 Magnesium 2.0 Total Bilirubin 0.3 AST 22 ALT 24 Alkaline Phosphatase 93 Total Creatine Kinase 138 Total Protein 6.7 Albumin 4.2 Urine Color Urine Appearance Urine pH Ur Specific [place] Urine Protein Urine Glucose (UA) Urine Ketones Urine Blood Urine Nitrite Ur Leukocyte Esterase Salicylates Urine Opiates Screen Urine Fentanyl Screen Acetaminophen Ur Barbiturates Screen Ur Phencyclidine Scrn Ur Amphetamines Screen U Benzodiazepines Scrn Urine Cocaine Screen U Marijuana (THC) Screen Ethyl Alcohol < 10 07/05/22 07/05/22 07/05/22 16:07 17:54 17:54 MCV MCH MCHC RDW Plt Count MPV Immature Gran % (Auto) Neut % (Auto) Lymph % (Auto) [place] % (Auto) Eos % (Auto) Baso % (Auto) Lymph # (Auto) [place] # (Auto) Eos # (Auto) Baso # (Auto) Abs Immat Gran (auto) Absolute Neuts (auto) Absolute Nucleated RBC Nucleated RBC % (auto) VBG pH VBG pCO2 VBG pO2 VBG HCO3 VBG O2 Saturation VBG Base Excess Anion Gap Estim Creat Clear Calc Estimated GFR POC Glucose Random Glucose Calcium Magnesium Total Bilirubin AST ALT Alkaline Phosphatase Total Creatine Kinase Total Protein Albumin Urine Color Yellow Urine Appearance Clear Urine pH 5.5 Ur Specific [place] 1.010 Urine Protein Negative Urine Glucose (UA) Negative Urine Ketones Negative Urine Blood Negative Urine Nitrite Negative Ur Leukocyte Esterase Negative Salicylates < 5.0 L Urine Opiates Screen POSITIVE H Urine Fentanyl Screen Not Detected Acetaminophen < 1 Ur Barbiturates Screen Not Detected Ur Phencyclidine Scrn Not Detected Ur Amphetamines Screen Not Detected U Benzodiazepines Scrn Not Detected Urine Cocaine Screen POSITIVE H U Marijuana (THC) Screen Not Detected Ethyl Alcohol 07/05/22 21:08 MCV MCH MCHC RDW Plt Count MPV Immature Gran % (Auto) Neut % (Auto) Lymph % (Auto) [place] % (Auto) Eos % (Auto) Baso % (Auto) Lymph # (Auto) [place] # (Auto) Eos # (Auto) Baso # (Auto) Abs Immat Gran (auto) Absolute Neuts (auto) Absolute Nucleated RBC Nucleated RBC % (auto) VBG pH 7.34 VBG pCO2 52 VBG pO2 50 VBG HCO3 28 H VBG O2 Saturation 80.0 VBG Base Excess 2.2 Anion Gap Estim Creat Clear Calc Estimated GFR POC Glucose Random Glucose Calcium Magnesium Total Bilirubin AST ALT Alkaline Phosphatase Total Creatine Kinase Total Protein Albumin Urine Color Urine Appearance Urine pH Ur Specific [place] Urine Protein Urine Glucose (UA) Urine Ketones Urine Blood Urine Nitrite Ur Leukocyte Esterase Salicylates Urine Opiates Screen Urine Fentanyl Screen Acetaminophen Ur Barbiturates Screen Ur Phencyclidine Scrn Ur Amphetamines Screen U Benzodiazepines Scrn Urine Cocaine Screen U Marijuana (THC) Screen Ethyl Alcohol Imaging Radiologist's Impressions: Impressions Cervical Spine CT 07/05/22 15:55 IMPRESSION: 1. No acute intracranial finding. 2. No fracture or malalignment of the cervical spine. Mild degenerative change. Head CT 07/05/22 15:55 IMPRESSION: 1. No acute intracranial finding. 2. No fracture or malalignment of the cervical spine. Mild degenerative change. Chest X-Ray 07/05/22 17:06 IMPRESSION: Hypoinflation. No pneumonia or edema. Assessment and Plan (1) Accidental overdose: Status: Acute (2) Prolonged QT interval: Status: Acute Plan 56-year-old female with past medical history of chronic pain, as well as trigeminal neuralgia presents to the hospital after found by her sister with empty bottles of medication # accidental overdose - patient reports taking 3 pills of amitriptyline as well as 2 pills of sleep medications(similar to Lunesta) - reports no suicidal ideation, no intention to hurt herself - hemodynamically stable otherwise - salicylate as well acetaminophen level negative - poison control consult, recommends following QT interval, as well as refusing IV Mag as well as potassium - monitor on telemetry # prolonged QT interval - stabilized - likely secondary to above - frequent EKGs - follow QT interval - p.r.n. Mag at the potassium as needed - will follow poison control recommendation # chronic pain, trigeminal neuralgia - patient takes OxyContin 20 mg b.i.d., as well as amitriptyline - at this time will hold DVT prophylaxis: Lovenox Time Spent With Patient Time: Total time managing care of this patient today ____ minutes. Quality Stroke Does the patient have a stroke diagnosis?: No VTE Prior VTE?: No VTE Risk Level:: Medical - moderate - high VTE Device Contraindication: Treatment Not Indicated VTE Drug Contraindication: N/A - Med Ordered
--- NOTE | 2022-07-05 22:56 | PC.NURSE ---
this rn tiger texted dr burleson regarding continuation of repeat ekgs. per md repeat ekg now.
--- NOTE | 2022-07-05 23:08 | PC.NURSE ---
ekg obtained on pt.picture of ekg sent to dr burleson. per we will check another ekg in 4 hrs
--- NOTE | 2022-07-05 23:25 | PC.NURSE ---
poison control called requesting updated ekg. per poison control recommentations per should get [address] Machado notified of this recommendation. agrees. awaiting order to be placed
[2022-07-05] MEDS: Lactated Ringers 1,000 ML 100 ML IVCONT (23:32)
[2022-07-06] MEDS: 0.9 % Sodium Chloride Flush 3 ML SYRINGE IVFLUSH ×2 (00:37→08:41)
[2022-07-06] MEDS: Potassium Chloride/H20 10 MEQ/100 ML PIGGYBACK 100 MEQ IV ×2 (00:37→01:52)
[2022-07-06] MEDS: Enoxaparin Sodium 40 MG/0.4 ML SYRINGE SUBCUT (00:37)
--- NOTE | 2022-07-06 03:08 | ECG_ITS ---
Test Reason : overdose Blood Pressure : / mmHG Vent. Rate : 086 BPM Atrial Rate : 086 BPM P-R Int : 152 ms QRS Dur : 106 ms QT Int : 412 ms P-R-T Axes : 061 023 052 degrees QTc Int : 493 ms Normal sinus rhythm Incomplete right bundle branch block Nonspecific T wave abnormality Prolonged QT Abnormal ECG When compared with ECG of 05-JUL-2022 23:00, No significant change was found Referred By: Ron Machado Electronically Signed By:Scott Valencia
[2022-07-06 03:25] VITALS: BP 148/72; PULSE 87; RESP 13; TEMP 36.6; O2SAT 99
--- NOTE | 2022-07-06 03:27 | MHC.EDTECH ---
Pt given iva care. Pt repositioned in bed. Pt given warm blanket and call orr placed in reach
--- NOTE | 2022-07-06 04:49 | PC.NURSE ---
pt rang call orr. pt A+O x4 at this time. pt stated she needed to use rest room. this rn assisted to rest room at this time. pt reports no difficulty with walking, denies dizziness. pt assisted back into bed at this time. pt requested apple sauce. no additional requests at this time
--- NOTE | 2022-07-06 04:58 | PC.NURSE ---
@ 0830 repeat ekg performed. photo sent to dr burleson. no new orders at this time
--- NOTE | 2022-07-06 05:05 | PC.NURSE ---
poison control called to check in on pt status. informed of most recent ekg reading. informed of pt being awake at this time. poison control states they will be clearing her. dr burleson notified at this time. no new orders at this time
[2022-07-06 05:17] LABS: COVID-19 Test Negative (Negative); IDNOW Serial# 16C4AD1C
[2022-07-06 05:46] VITALS: BP 157/87; PULSE 84; RESP 10; TEMP 36.6; O2SAT 93; BMI 37.0
[2022-07-06 06:07] LABS: MANUAL DIFF FLAG NO
[2022-07-06 06:09] LABS: Basophils Percent Auto 0.4 % (0-2); Eosinophils Absolute Auto 0.2 X10*3/uL (0.0-0.4); Eosinophils Percent Auto 1.9 % (0-4); Hematocrit 36.8 % (37.0-47.0); Hemoglobin 12.5 g/dl (12.0-16.0); Imm Gran Abs Auto 0.04 X10*3/uL (0.00-0.03); Imm Gran Pct Auto 0.5 % (0.0-0.4); Lymphocytes Absolute Auto 2.7 X10*3/uL (1.2-4.9); Lymphocytes Percent Auto 32.3 % (20-40); Mean Corpuscular Hemoglobin 32.9 pg (27.0-33.0); Mean Corpuscular Volume 96.8 fL (80.0-98.0); Mean Platelet Volume 8.7 fL (9.4-12.3); Monocytes Absolute Auto 0.4 X10*3/uL (0.1-1.2); Monocytes Percent Auto 5.2 % (2-11); Neutrophils Percent Auto 59.7 % (45-73); Platelet Count 210 X10*3/uL (160-400); White Blood Count 8.3 X10*3/uL (4.8-10.8)
[2022-07-06 06:22] LABS: Anion Gap 15 (12-20); Blood Urea Nitrogen 9 mg/dL (9-16); Calcium 8.9 mg/dL (8.4-10.2); Carbon Dioxide 25 mmol/L (22-29); Chloride 104 mmol/L (96-108); Creatinine Clr Calc Pharmacy 112.4; Estimated Glomerular Filt Rate > 60; Glucose Random 123 mg/dL (60-115); Sodium 140 mmol/L (135-145)
--- NOTE | 2022-07-06 06:34 | PM.EVENT ---
Event Note Date of Service: 07/06/22 Event Note: QT interval has stabilized. Poison Control has cleared patient for discharge Time Spent With Patient Time: Total time managing care of this patient today ____ minutes.
[2022-07-06 07:31] VITALS: BP 117/62; PULSE 81; RESP 11; TEMP 36.6; O2SAT 97
--- NOTE | 2022-07-06 08:31 | PHA.MEDREC ---
Pharmacy Consult ? Medication Reconciliation Pharmacy has completed the medication reconciliation. Patient is from [facility] therefore PDMP does not show claims of oxycotin. Patient also takes some international drugs that we do not have programmed into our system, this includes zopiclone and etoricoxib.
--- NOTE | 2022-07-06 08:46 | PC.NURSE ---
pt is a/o x 4 no sob/crystal noted speaks in full sentences. lungs - cta. heart sounds regular. abd obese, soft and non-tender. bs + x 4 quads. no edema noted pt aware of plan of care. pt is requesting a phone to call her sister because she wants to leave [facility].
[2022-07-06] MEDS: Lactated Ringers 1,000 ML 100 ML IVCONT (09:40)
[2022-07-06 10:59] VITALS: BP 117/75; PULSE 89; RESP 18; TEMP 520.3; TEMP 968.5; O2SAT 97
[2022-07-06 11:03] VITALS: BP 123/76; PULSE 87; RESP 11; TEMP 36.8; O2SAT 98
--- NOTE | 2022-07-06 12:39 | MHC.CM.PN ---
Met with patient and sister, Kanika, in regards to discharge planning. Patient lives with her boyfriend, ambulates independently, and had no services prior to coming to the hospital. Patient recently moved to [place] from the [facility]. Patient has no PCP or insurance. Patient has a pain management doctor. Patient is already in communication with Kind[facility] from [employer]. Patient states she has received 2 Covid vaccines but doesn't remember dates or name. Patient denies having a HCP. Information provided. Patient not interested in completing one at this time. Patient's sister will transport her home when medically stable. Continue to monitor for d/c needs.
--- NOTE | 2022-07-06 12:40 | PM.DS ---
DS: Providers Provider Date of Service: 07/06/22 Date of admission: 07/05/22 22:30 Primary care physician: Unknown Physician DS: Diagnosis Discharge Diagnosis (1) Accidental overdose: Status: Acute (2) Prolonged QT interval: Status: Acute DS: Summary Hospital Course Hospital Course: from initial hpi: Chief Complaint: Accidental overdose This is a 56-year-old female with past medical history of trigeminal neurology, insomnia, presents to the hospital after sister found her to be unresponsive.? Patient lives in the [facility], and is here visiting her sister.? According to the sister she also found bottles of alcohol as well as her medication bottles including amitriptyline, and her sleep medication ( similar to lunesta).? Patient currently lethargic, but arousable, answers questions appropriately.? Reports having taken 3 pills on amitriptyline because she had difficulty falling asleep, as well as her sleep medication about 2 of them.? Denies using any illicit drugs, denies drinking alcohol.? Reports no chest pain, no dizziness, no headache, no change in vision, no shortness of breath no abdominal pain nausea or vomiting, no diarrhea constipation, LUCINA symptoms and lower extremity edema. Patient adamantly denies that she tried to hurt herself, reports no suicidal or homicidal ideation On arrival to the ED patient hemodynamically stable with slightly elevated heart rate Labs are significant for WBC count of 8.3, labs otherwise unremarkable Urine drug screen is positive for cocaine, opioids, alcohol level less than 10. Head CT shows no acute intracranial finding Chest x-ray shows no pneumonia or edema Poison control contacted, patient did have slightly increased QT that went from 496 to 517and they recommended magnesium and potassium infusions hospital course: Patient was admitted for toxic metabolic encephalopathy due to accidental overdose of amitriptyline and possibly lunesta in addition to alcohol use. she was monitored for qt prolongation, which improved, was cleared by poison control and mental status has returned to baseline. will discharge home. Time Spent with Patient Time attestation: Total time managing care of this patient today ____ minutes. Discharge coordination time: Greater than 30 minutes Quality: Safe Use of Opioids Does Pt have an Active Cancer Diagnosis on the Problem List?: No Quality: Stroke Does the patient have a stroke diagnosis?: No Physical Exam Vital Signs: Vital Signs: Last Vital Signs Temp 98.3 F 07/06/22 11:03 Pulse 87 12/23/22 11:03 Resp 11 L 07/06/22 11:03 BP 123/76 07/06/22 11:03 Pulse Ox 98 07/06/22 11:03 O2 Del Method 07/06/22 11:03 O2 Flow Rate 2 07/06/22 03:25 BMI result Body Mass Index 37.0 General: AO X 3, no acute distress Resp: CTA bilateral, no accessory muscles used CVS: S1,S2,RRR GI: soft, non tender, non distended Neuro: motor grossly intact, alert Psych: appropriate affect, appropriate insight DS: Data Data Completed and Pending Labs on day of discharge: Laboratory Results - last 24 hr 07/05/22 07/05/22 07/05/22 15:31 16:07 16:07 WBC 9.9 RBC 4.04 L Hgb 13.4 Hct 39.3 MCV 97.3 MCH 33.2 H MCHC 34.1 RDW 13.0 Plt Count 219 MPV 8.4 L Immature Gran % (Auto) 0.8 H Neut % (Auto) 60.9 Lymph % (Auto) 29.7 [place] % (Auto) 6.4 Eos % (Auto) 1.9 Baso % (Auto) 0.3 Lymph # (Auto) 3.0 [place] # (Auto) 0.6 Eos # (Auto) 0.2 Baso # (Auto) 0.0 Abs Immat Gran (auto) 0.08 H Absolute Neuts (auto) 6.1 Absolute Nucleated RBC 0.000 Nucleated RBC % (auto) 0.0 O2 Saturation ABG pH at Pt Temp ABG pCO2 at Pt Temp ABG pO2 at Pt Temp ABG HCO3 ABG Base Excess (Actual) VBG pH VBG pCO2 VBG pO2 VBG HCO3 VBG O2 Saturation VBG Base Excess Sodium 140 Potassium 3.8 Chloride 103 Carbon Dioxide 28 Anion Gap 13 BUN 15 Creatinine 0.78 Estim Creat Clear Calc 105.5 Estimated GFR > 60 POC Glucose 106 Random Glucose 90 Calcium 9.4 Magnesium 2.0 Total Bilirubin 0.3 AST 22 ALT 24 Alkaline Phosphatase 93 Total Creatine Kinase 138 Total Protein 6.7 Albumin 4.2 Urine Color Urine Appearance Urine pH Ur Specific [place] Urine Protein Urine Glucose (UA) Urine Ketones Urine Blood Urine Nitrite Ur Leukocyte Esterase Salicylates Urine Opiates Screen Urine Fentanyl Screen Acetaminophen Ur Barbiturates Screen Ur Phencyclidine Scrn Ur Amphetamines Screen U Benzodiazepines Scrn Urine Cocaine Screen U Marijuana (THC) Screen Ethyl Alcohol < 10 COVID-19 ([facility]) COVID-19 [employer] 07/05/22 07/05/22 07/05/22 16:07 17:54 17:54 WBC RBC Hgb Hct MCV MCH MCHC RDW Plt Count MPV Immature Gran % (Auto) Neut % (Auto) Lymph % (Auto) [place] % (Auto) Eos % (Auto) Baso % (Auto) Lymph # (Auto) [place] # (Auto) Eos # (Auto) Baso # (Auto) Abs Immat Gran (auto) Absolute Neuts (auto) Absolute Nucleated RBC Nucleated RBC % (auto) O2 Saturation ABG pH at Pt Temp ABG pCO2 at Pt Temp ABG pO2 at Pt Temp ABG HCO3 ABG Base Excess (Actual) VBG pH VBG pCO2 VBG pO2 VBG HCO3 VBG O2 Saturation VBG Base Excess Sodium Potassium Chloride Carbon Dioxide Anion Gap BUN Creatinine Estim Creat Clear Calc Estimated GFR POC Glucose Random Glucose Calcium Magnesium Total Bilirubin AST ALT Alkaline Phosphatase Total Creatine Kinase Total Protein Albumin Urine Color Yellow Urine Appearance Clear Urine pH 5.5 Ur Specific [place] 1.010 Urine Protein Negative Urine Glucose (UA) Negative Urine Ketones Negative Urine Blood Negative Urine Nitrite Negative Ur Leukocyte Esterase Negative Salicylates < 5.0 L Urine Opiates Screen POSITIVE H Urine Fentanyl Screen Not Detected Acetaminophen < 1 Ur Barbiturates Screen Not Detected Ur Phencyclidine Scrn Not Detected Ur Amphetamines Screen Not Detected U Benzodiazepines Scrn Not Detected Urine Cocaine Screen POSITIVE H U Marijuana (THC) Screen Not Detected Ethyl Alcohol COVID-19 ([facility]) COVID-19 [employer] 07/05/22 07/05/22 07/06/22 21:08 22:41 04:56 WBC RBC Hgb Hct MCV MCH MCHC RDW Plt Count MPV Immature Gran % (Auto) Neut % (Auto) Lymph % (Auto) [place] % (Auto) Eos % (Auto) Baso % (Auto) Lymph # (Auto) [place] # (Auto) Eos # (Auto) Baso # (Auto) Abs Immat Gran (auto) Absolute Neuts (auto) Absolute Nucleated RBC Nucleated RBC % (auto) O2 Saturation 94.0 ABG pH at Pt Temp 7.43 ABG pCO2 at Pt Temp 38 ABG pO2 at Pt Temp 77 L ABG HCO3 26 ABG Base Excess (Actual) 1.9 VBG pH 7.34 VBG pCO2 52 VBG pO2 50 VBG HCO3 28 H VBG O2 Saturation 80.0 VBG Base Excess 2.2 Sodium Potassium Chloride Carbon Dioxide Anion Gap BUN Creatinine Estim Creat Clear Calc Estimated GFR POC Glucose Random Glucose Calcium Magnesium Total Bilirubin AST ALT Alkaline Phosphatase Total Creatine Kinase Total Protein Albumin Urine Color Urine Appearance Urine pH Ur Specific [place] Urine Protein Urine Glucose (UA) Urine Ketones Urine Blood Urine Nitrite Ur Leukocyte Esterase Salicylates Urine Opiates Screen Urine Fentanyl Screen Acetaminophen Ur Barbiturates Screen Ur Phencyclidine Scrn Ur Amphetamines Screen U Benzodiazepines Scrn Urine Cocaine Screen U Marijuana (THC) Screen Ethyl Alcohol COVID-19 ([facility]) Negative COVID-19 Clin Com See Note 07/06/22 07/06/22 05:37 05:37 WBC 8.3 RBC 3.80 L Hgb 12.5 Hct 36.8 L MCV 96.8 MCH 32.9 MCHC 34.0 RDW 13.0 Plt Count 210 MPV 8.7 L Immature Gran % (Auto) 0.5 H Neut % (Auto) 59.7 Lymph % (Auto) 32.3 [place] % (Auto) 5.2 Eos % (Auto) 1.9 Baso % (Auto) 0.4 Lymph # (Auto) 2.7 [place] # (Auto) 0.4 Eos # (Auto) 0.2 Baso # (Auto) 0.0 Abs Immat Gran (auto) 0.04 H Absolute Neuts (auto) 5.0 Absolute Nucleated RBC 0.000 Nucleated RBC % (auto) 0.0 O2 Saturation ABG pH at Pt Temp ABG pCO2 at Pt Temp ABG pO2 at Pt Temp ABG HCO3 ABG Base Excess (Actual) VBG pH VBG pCO2 VBG pO2 VBG HCO3 VBG O2 Saturation VBG Base Excess Sodium 140 Potassium 4.0 Chloride 104 Carbon Dioxide 25 Anion Gap 15 BUN 9 Creatinine 0.72 Estim Creat Clear Calc 112.4 Estimated GFR > 60 POC Glucose Random Glucose 123 H Calcium 8.9 Magnesium Total Bilirubin AST ALT Alkaline Phosphatase Total Creatine Kinase Total Protein Albumin Urine Color Urine Appearance Urine pH Ur Specific [place] Urine Protein Urine Glucose (UA) Urine Ketones Urine Blood Urine Nitrite Ur Leukocyte Esterase Salicylates Urine Opiates Screen Urine Fentanyl Screen Acetaminophen Ur Barbiturates Screen Ur Phencyclidine Scrn Ur Amphetamines Screen U Benzodiazepines Scrn Urine Cocaine Screen U Marijuana (THC) Screen Ethyl Alcohol COVID-19 ([facility]) COVID-19 Clin Com Discharge Plan Discharge Anticipated Discharge Date/Time: 07/06/22 12:39 Patient Disposition: Home, Self-Care Discharge Diagnosis: accidental overdose Referrals: Physician,Unknown J [Primary Care Provider] - 1 Week Discharge Medications: Continued oxycodone 20 mg tablet,oral only,ext.rel.12 hr 1 tab PO Q12H amitriptyline 50 mg Tablet 50 mg PO TID PRN (Reason: pain) Discharge Orders: Discharge Order (Routine); Ordered 07/06/22 Ordered By: Nikolai Sanchez Diet: Advance to usual diet Activity on Discharge: As tolerated Stand Alone Forms: Patient Portal Discharge page Care Plan Goals: recovery Health Concerns: etoh dependence, polypharmacy Plan of Treatment: avoid etoh, mixing medications Assessment: see above
== END 2022-07-06 12:58 | disposition home or self-care (01) ==
LOC: HO.ED 23:21 → HO.EDOVER 23:23
PROVIDERS: Nurse Practitioner Family; Admitting Provider Internal Medicine; Emergency Provider Internal Medicine; Visit Provider Internal Medicine
DX: T43.011A Poisoning by tricyclic antidepressants, accidental (unintentional), initial encounter (principal); G92.8 Other toxic encephalopathy; R94.31 Abnormal electrocardiogram [ECG] [EKG]; Y92.019 Unspecified place in single-family (private) house as the place of occurrence of the external cause; R00.0 Tachycardia, unspecified; I45.19 Other right bundle-branch block; G89.29 Other chronic pain; G50.0 Trigeminal neuralgia; G47.00 Insomnia, unspecified; F17.200 Nicotine dependence, unspecified, uncomplicated; Z79.891 Long term (current) use of opiate analgesic; Z79.899 Other long term (current) drug therapy; Z20.822 Contact with and (suspected) exposure to COVID-19
CPT/HCPCS: 36415; 70450; 71045; 72125; 80048; 80053; 80143; 80179; 80307; 81003; 82077; 82550; 82803; 82947; 83735; 85025; 87635; 93005; 96361; 96365; 96366; 96367; 96372; 96375; 96376; 99218; 99285; J1650; J3475

== ENCOUNTER 2024-05-09 10:35 | Emergency (ER) | payer OTHER, SELFPAY ==
--- NOTE | ~2024-05-09 | XR_ITS ---
EXAMINATION: XR CHEST CLINICAL INFORMATION: Chest pain COMPARISON: Chest x-ray July 05, 2022 TECHNIQUE: Frontal view of the chest was obtained. FINDINGS: Cardiac silhouette is normal in size. The lungs are well aerated. There is no lobar consolidation. No pleural effusion or pneumothorax. XR/XR chest 1V IMPRESSION: No acute pulmonary pathology. Electronically signed by: Tj Yung MD 05/09/2024 12:43 PM EDT
--- NOTE | 2024-05-09 10:37 | ECG_ITS ---
Test Reason : CHEST PAIN Blood Pressure : / mmHG Vent. Rate : 101 BPM Atrial Rate : 101 BPM P-R Int : 158 ms QRS Dur : 100 ms QT Int : 364 ms P-R-T Axes : 052 -01 059 degrees QTc Int : 471 ms Sinus tachycardia Incomplete right bundle branch block Possible Inferior infarct , age undetermined Cannot rule out Anterior infarct , age undetermined Abnormal ECG When compared with ECG of 06-JUL-2022 03:14, Minimal criteria for Anterior infarct are now Present Borderline criteria for Inferior infarct are now Present Referred By: Generic ED Physician Electronically Signed By:Scott Valencia
[2024-05-09 10:46] VITALS: BP 133/74; PULSE 104; RESP 18; TEMP 36.5; O2SAT 97; BMI 40.7
[2024-05-09 11:11] LABS: MANUAL DIFF FLAG NO
[2024-05-09 11:13] LABS: Basophils Percent Auto 0.4 % (0-2); Eosinophils Absolute Auto 0.1 X10*3/uL (0.0-0.4); Eosinophils Percent Auto 1.5 % (0-4); Hemoglobin 14.2 g/dl (12.0-16.0); Imm Gran Abs Auto 0.08 X10*3/uL (0.00-0.03); Imm Gran Pct Auto 0.9 % (0.0-0.4); Lymphocytes Absolute Auto 2.5 X10*3/uL (1.2-4.9); Lymphocytes Percent Auto 27.4 % (20-40); Mean Corpuscular HGB Conc 35.5 g/dl (31.0-35.0); Mean Corpuscular Hemoglobin 35.8 pg (27.0-33.0); Mean Corpuscular Volume 100.8 fL (80.0-98.0); Mean Platelet Volume 8.4 fL (9.4-12.3); Monocytes Absolute Auto 0.5 X10*3/uL (0.1-1.2); Neutrophils Absolute Auto 5.9 x10*3/uL (2.0-8.3); Neutrophils Percent Auto 64.8 % (45-73); Platelet Count 205 X10*3/uL (160-400); Red Blood Count 3.97 X10*6/uL (4.20-5.50); Red Cell Distribution Width 12.3 % (11.0-16.0); White Blood Count 9.1 X10*3/uL (4.8-10.8)
[2024-05-09 11:38] LABS: Alanine Aminotransferase 105 U/L (0-31); Albumin Level 4.4 g/dL (3.5-5.0); Alkaline Phosphatase 93 U/L (39-117); Anion Gap 15 (12-20); Aspartate Amino Transferase 65 U/L (5-31); Bilirubin Total 0.3 mg/dL (0.0-1.0); Blood Urea Nitrogen 12 mg/dL (9-16); Carbon Dioxide 26 mmol/L (22-29); Chloride 103 mmol/L (96-108); Creatinine Clr Calc Pharmacy 108.7; Estimated Glomerular Filt Rate > 60; Glucose Random 117 mg/dL (60-115); Magnesium 1.7 mg/dL (1.6-2.6); Potassium 4.6 mmol/L (3.3-5.1); Sodium 139 mmol/L (135-145); Total Protein 7.6 g/dL (6.5-8.0)
--- NOTE | 2024-05-09 11:47 | ED_ITS ---
HPI - Chest Pain General Chief Complaint: Chest Pain Stated Complaint: chest pain Time Seen by Provider: 05/09/24 11:46 Source: patient Mode of arrival: ambulatory Limitations: no limitations History of Present Illness ED Provider: sid CASTAÑEDA narrative: Patient is a 58-year-old female history of insomnia, chronic pain, trigeminal neuralgia presenting to the emergency department with complaint of right-sided chest pain which she describes as pressure for the past 2-3 weeks. States the pain is intermittent. Reports dyspnea on exertion. Denies any diaphoresis, nausea, vomiting, shortness of breath at rest, palpitations. Denies fevers. States that she is scheduled to have cataract surgery on June 04 and went to urgent care yesterday for medical clearance. She was told there that her EKG was abnormal and to be evaluated in the emergency department. Denies cough or hemoptysis, did recently move here from the [facility] in February. Has a new PCP here but first appointment is not until January. complaint: chest pain Onset (ago): week(s) Timing of current episode: episodic Onset: during rest and during exertion Pain location: right chest Pain radiation: none Quality: heaviness Relieving factors: rest Exacerbating factors: exertion Associated symptoms: dyspnea Treatment prior to arrival: none Related Data Home Medications ?Medication ?Instructions ?Recorded ?Confirmed amitriptyline 50 mg tablet 50 mg PO TID PRN pain 07/06/22 07/06/22 oxycodone 20 mg tablet,crush 1 tab PO Q12H 07/06/22 resistant,extended release 12 hr Allergies Allergy/AdvReac Type Severity Reaction Status Date / Time No Known Allergies Allergy Verified 05/09/24 10:49 Review of Systems 2 Review of Systems: As per HPI. Yes all other systems are reviewed and are negative Constitutional: Constitutional: Reports as per HPI PMF Past Medical History Medical History Chronic pain Insomnia Trigeminal neuralgia Surgical History No pertinent past surgical history Family History Family History Other No family history of coronary artery disease Social History Social History (Updated 07/06/22 @ 06:31 by Ron Machado MD) Alcohol intake: current Patient Tobacco Use Status: Current everyday Tobacco user Advance Directives: No Advance Directives Information Provided: Yes service: No Current occupational status: unemployed Physical Exam 2 Vital Signs: Vital Signs: Last Vital Signs Temp 97.7 F 05/09/24 10:46 Pulse 104 H 05/09/24 10:46 Resp 18 05/09/24 10:46 BP 133/74 05/09/24 10:46 Pulse Ox 97 05/09/24 10:46 O2 Del Method Room Air 05/09/24 10:46 BMI result Body Mass Index 40.7 Vital signs have been reviewed and appear to be correct. Blood pressure normal. Heart rate slightly tachycardic. Respiratory rate normal. Temperature normal. Oxygen saturation normal. Const: General: cooperative and no acute distress Nutritional Appearance: o bese Orientation/consciousness: oriented to person, oriented to place, oriented to time and patient oriented x3 Limitations: no limitations HEENT: Head: Yes normocephalic and Yes atraumatic Ears: external ears normal General nose exam: Normal external nose present Face and sinus: Yes face symmetric Mouth: oropharynx normal and moist mucous membranes Throat: Yes uvula midline Eyes: Pupils: Equal, round and reactive pupils present Neck: Neck: Yes normal visual inspection and Yes supple Resp: Effort & Inspection: normal respiratory effort and able to speak in complete sentences Auscultation: clear to auscultation bilaterally Cardio: Rate: regular rate Rhythm: regular rhythm Heart sounds: S1 normal heart sound present and S2 normal heart sound present GI: Palpation (GI): Soft to palpation and nontender Auscultation: n ormoactive bowel sounds : General: Yes no CVA tenderness Back/Spine/Pelvis: Back: no CVA tenderness Skin: General skin exam: elasticity normal and turgor normal Neuro: General: oriented to person, oriented to place, oriented to time, patient oriented x3, moves all extremities, no focal motor deficits and CN's II- XI intact bilaterally Cranial nerves: Yes Equal, round and reactive pupils present Cognition (Neuro): normal cognition Extrem: General: Yes full ROM, Yes no pedal edema and Yes no calf tenderness Psych: Mental Status: mental status grossly normal Affect: normal affect Thought process: Normal thought process present Medical Decision Making Medical Decision Making MDM Narrative: Patient is a 58-year-old female history of insomnia, chronic pain, trigeminal neuralgia presenting to the emergency department with complaint of right-sided chest pain which she describes as pressure for the past 2-3 weeks. On exam patient is awake, A+Ox3, HR slightly tachycardic, VS otherwise WNL, afebrile, normal neurological exam without focal deficits, physical exam findings as above. Given reported symptoms and physical exam findings, initial differential includes ACS, PE, pneumonia, pneumothorax, CHF. Labs notable for no leukocytosis, negative troponin, mildly elevated transaminases in 2:1 ratio, normal bilirubin, d dimer neg. X-ray chest notable for no evidence of pneumonia or pneumothorax, no edema. My interpretation is in agreement with the radiologist's interpretation. EKG shows incomplete RBBB which was also present on EKG from 2021. HEART score of 3. Discussed with patient that she will need med clearance for surgery from either PCP or cardiology, will send cards referral. Return precautions discussed. Patient verbalized understanding of and agreement with plan. Differential Diagnosis Differential Diagnoses: The differential diagnosis associated with the presentation includes As per [facility] Admission/Observation Consideration of admission/observation: Escalation of care including admission/observation considered Patient would have been admitted to the hospital had their work up had any findings where hospital admission was appropriate and their clinical presentation warranted hospital admission. Lab Data [facility] Lab Attestation statement: I reviewed the patient's lab results. As per [facility] 05/09/24 11:06 05/09/24 11:06 Labs: Lab Results 05/09/24 05/09/24 Range/Units 11:06 12:03 WBC 9.1 (4.8-10.8) X10*3/uL RBC 3.97 L (4.20-5.50) X10*6/uL Hgb 14.2 (12.0-16.0) g/dl Hct 40.0 (37.0-47.0) % MCV 100.8 H (80.0-98.0) fL MCH 35.8 H (27.0-33.0) pg MCHC 35.5 H (31.0-35.0) g/dl RDW 12.3 (11.0-16.0) % Plt Count 205 (160-400) X10*3/uL MPV 8.4 L (9.4-12.3) fL Immature Gran % (Auto) 0.9 H (0.0-0.4) % Neut % (Auto) 64.8 (45-73) % Lymph % (Auto) 27.4 (20-40) % [place] % (Auto) 5.0 (2-11) % Eos % (Auto) 1.5 (0-4) % Baso % (Auto) 0.4 (0-2) % Lymph # (Auto) 2.5 (1.2-4.9) X10*3/uL [place] # (Auto) 0.5 (0.1-1.2) X10*3/uL Eos # (Auto) 0.1 (0.0-0.4) X10*3/uL Baso # (Auto) 0.0 (0.0-0.2) X10*3/uL Abs Immat Gran (auto) 0.08 H (0.00-0.03) X10*3/uL Absolute Neuts (auto) 5.9 (2.0-8.3) x10*3/uL Absolute Nucleated RBC 0.000 (0.0-0.012) X10*3/uL Nucleated RBC % (auto) 0.0 (0.0-0.2) /100WBC D-Dimer High Sensitivty < 150 NG/ML Sodium 139 (135-145) mmol/L Potassium 4.6 (3.3-5.1) mmol/L Chloride 103 (96-108) mmol/L Carbon Dioxide 26 (22-29) mmol/L Anion Gap 15 (12-20) BUN 12 (9-16) mg/dL Creatinine 0.74 (0.5-1.4) mg/dL Estim Creat Clear Calc 108.7 Estimated GFR > 60 Random Glucose 117 H (60-115) mg/dL Calcium 10.0 D (8.4-10.2) mg/dL Magnesium 1.7 (1.6-2.6) mg/dL Total Bilirubin 0.3 (0.0-1.0) mg/dL AST 65 H (5-31) U/L ALT 105 H (0-31) U/L Alkaline Phosphatase 93 (39-117) U/L Troponin I High Sens < 2.7 (<3.5-17.0) ng/L Total Protein 7.6 (6.5-8.0) g/dL Albumin 4.4 (3.5-5.0) g/dL Independent Interpretation I performed an independent interpretation of an: EKG (sinus tachycardia, rate 101bpm, normal ND interval, incomplete RBBB which was also noted on EKG from 2021) and Plain X-Ray Interpretation: X-ray chest notable for no evidence of pneumonia or pneumothorax, no edema. Radiology Impression Discussion of test interpretation with radiology: I have reviewed the radiologist's reading. Radiologist Impression: XR/XR chest 1V IMPRESSION: No acute pulmonary pathology. External Record Review External record reviewed: Inpatient record, Office record and Outpatient record Scores Heart Score History: -0- slightly suspicious ECG: -1- non specific repolarization disturbance Age: -1- >45 - <65 Risk factory: -1- 1 or 2 risk factors Troponin: -0- < or = normal limit Score: 3 Risk: 1.7% Discharge Plan Discharge Clinical Impression: Atypical chest pain Patient Disposition: Home, Self-Care Instructions: Chest Pain (DC), Noncardiac Chest Pain (ED) Additional Instructions: You were evaluated in the emergency department today for chest pain. Your evaluation has shown no signs of medical conditions requiring emergent intervention at this time, however we recommend that you follow-up with your primary care physician or your quality assurance qa lab technician for further testing as an outpatient. Please schedule an appointment for follow-up with your primary care physician as soon as possible. Return to the emergency department if you experience worsening or uncontrolled chest pain, shortness of breath, lightheadedness, feeling faint, loss of consciousness, nausea, vomiting, or any other concerning symptoms. Prescriptions: No Action oxycodone 20 mg tablet,oral only,ext.rel.12 hr 1 tab PO Q12H amitriptyline 50 mg Tablet 50 mg PO TID PRN (Reason: pain) Referrals: [facility] [place] [facility] [Provider Group] - 1 week (For pre-op clearance) Print Language: Portuguese
[2024-05-09 12:10] LABS: Troponin-I High Sensitivity < 2.7 ng/L (<3.5-17.0)
[2024-05-09 12:30] LABS: D Dimer High Sensitivity < 150 NG/ML
[2024-05-09 13:43] VITALS: BP 115/73; PULSE 94; RESP 16; TEMP 36.7; O2SAT 97
[2024-05-09 14:13] VITALS: BP 115/73; PULSE 94; RESP 16; TEMP 36.7; O2SAT 97
== END 2024-05-09 14:14 | disposition home or self-care (01) ==
PROVIDERS: Registered Nurse Emergency; Emergency Provider Emergency Medicine Emergency Medical Services
DX: R07.89 Other chest pain (principal)
CPT/HCPCS: 36415; 71045; 80053; 83735; 84484; 85025; 85379; 93005; 99283; 99284

== ENCOUNTER → 2024-05-09 10:37 | Outpatient (BNV) | payer OTHER, SELFPAY | PROVIDERS: Emergency Provider Emergency Medicine Emergency Medical Services; Visit Provider Internal Medicine Cardiovascular Disease | DX: R07.9 Chest pain, unspecified (principal); I45.19 Other right bundle-branch block; R00.0 Tachycardia, unspecified; R94.31 Abnormal electrocardiogram [ECG] [EKG] | CPT/HCPCS: 93010 ==

== ENCOUNTER 2024-06-18 14:52 | Emergency (ER) | payer OTHER, SELFPAY ==
--- NOTE | ~2024-06-18 | XR_ITS ---
EXAMINATION: XR KNEE, RIGHT CLINICAL INFORMATION: right knee pain s/p injury COMPARISON: None available. TECHNIQUE: Four views of the right knee. FINDINGS: Moderate joint effusion. Alignment is anatomic. Joint spaces are maintained. No abnormal soft tissue calcification. XR/XR knee RT 4V IMPRESSION: Moderate joint effusion. Electronically signed by: Ольга Kramer MD 06/18/2024 04:39 PM EST
[2024-06-18 15:09] VITALS: BP 138/83; PULSE 118; RESP 20; TEMP 36.6; O2SAT 96
--- NOTE | 2024-06-18 15:10 | ECG_ITS ---
Test Reason : TACHY Blood Pressure : / mmHG Vent. Rate : 115 BPM Atrial Rate : 115 BPM P-R Int : 150 ms QRS Dur : 098 ms QT Int : 354 ms P-R-T Axes : 053 -01 055 degrees QTc Int : 489 ms Sinus tachycardia Incomplete right bundle branch block Cannot rule out Inferior infarct (cited on or before 09-MAY-2024) Abnormal ECG When compared with ECG of 09-MAY-2024 10:48, No significant change was found Referred By: Mily Ng Electronically Signed By:Scott Valencia
--- NOTE | 2024-06-18 15:12 | ED.LOWEXIN ---
HPI - Extremity Injury (Lower) General Chief Complaint: Extremity Injury, Lower Stated Complaint: Pain R knee Time Seen by Provider: 06/18/24 16:46 Source: patient Mode of arrival: ambulatory Limitations: no limitations History of Present Illness ED Provider: LEEANNA NG PA-C HPI Narrative: 58 year old female with pmhx significant for polsubstance abuse presents to the ED today for evaluation of right knee pain/ swelling x2 days. She states that while shopping at the grocery store, the cart came back and struck her in the right knee. Admits her knee bent back . She did not fall to the ground or strike her head. Not on AC. Reports pain/ swelling since. Pain is exacerbated with ambulating and does not radiate. Denies redness/ warmth. Denies IVDU. Denies numbness/tingling/weakness of the right lower extremity, fever, chills. Denies falls. Denies other trauma. Related Data Home Medications ?Medication ?Instructions ?Recorded ?Confirmed amitriptyline 50 mg tablet 50 mg PO TID PRN pain 07/06/22 07/06/22 oxycodone 20 mg tablet,crush 1 tab PO Q12H 07/06/22 resistant,extended release 12 hr Previous Rx's ?Medication ?Instructions ?Recorded naproxen 500 mg tablet 500 mg PO Q12H PRN pain (scale 06/18/24 score 1-3) #20 tabs Allergies Allergy/AdvReac Type Severity Reaction Status Date / Time No Known Allergies Allergy Verified 06/18/24 15:10 Review of Systems Review of Systems: Constitutional: No fever, chills, fatigue, night sweats, weight changes ENT/Mouth: No ear pain, hearing loss, nasal congestion, sinus pain, rhinorrhea, sore throat Eyes: No eye pain, swelling, redness, vision changes, discharge Cardio: No chest pain, palpitations, TORRES, orthopnea, peripheral edema Pulm: No SOB, cough, sputum, wheezing, dyspnea, hemoptysis GI: No nausea, vomiting, hematemesis, abdominal pain, diarrhea, constipation, hematochezia, melena : No irregular bleeding, dysuria, frequency, urgency, hesitancy, hematuria, flank pain, urinary flow changes, urinary incontinence or retention MSK: No back pain, neck pain, joint pain, myalgias, +right knee pain Skin: No lesions, rashes Neuro: No weakness, numbness, paresthesias, LOC, dizziness, headache Psych: No anxiety/panic, depression, SI/HI, AH/VH All other systems reviewed and are negative. [facility]LY [facility], [facility] Past Medical History Attestation statement: The following information was validated with the patient. Source: old records reviewed and nursing notes reviewed Medical History Chronic pain Trigeminal neuralgia Insomnia Surgical History No pertinent past surgical history Family History Family History Other No family history of coronary artery disease Social History Social History Alcohol intake: current Patient Tobacco Use Status: Current everyday Tobacco user service: No Current occupational status: unemployed Physical Exam Vital Signs: Vital Signs: Last Vital Signs Temp 97.9 F 06/18/24 15:09 Pulse 118 H 06/18/24 15:09 Resp 20 06/18/24 15:09 BP 138/83 06/18/24 15:09 Pulse Ox 96 06/18/24 15:09 O2 Del Method Room Air 06/18/24 15:09 BMI result Body Mass Index 5.9 tachycardic, vitals otherwise wnl. afebrile. General: in NAD. appears intoxicated on substances. Skin: Warm, dry, intact. No rashes or lesions. Head: Normocephalic, atraumatic. Cardiac: Chest wall symmetric. tachycardic, regular rhythm Lungs: Normal respiratory effort without accessory muscle use. CTA bilaterally Back: No midline spinous or paraspinal tenderness. No step off deformity. Ext: +Right knee without overlying erythema. There is mild amount of swelling to knee. No warmth. No crepitus or palpable deformity. Sensation intact throughout. Strength intact. No calf tenderness. No tenderness along plantar fascia or Achilles tendon. 2+ popliteal, DP/TP pulse intact. Full ROM intact to right knee. Ambulating with slight limping gait. Neuro: AOx3. Normal speech. Course Course Course Narrative: This is a Rapid Medical Examination (RME) performed by Memo Ng PA-C in triage. Full HPI, ROS, assessment and treatment plan per primary provider in the Main ED. 58 yo female hx of polysubstance abuse here for eval of right knee pain after being struck in the knee with a shopping cart 2 days ago. states my knee bent backwards . endorses swelling. taking aleve with minimal improvement. last dose at 0500 today. +tachy to 120. denies chest pain Plan: basic labs, XR, ekg Reevaluation(s) Reevaluation #1: 1700 -- xr right knee without fracture. moderate joint effusion. labs without leukocytosis or left shift. No anemia. H&H stable. Chemistry without acute electrolyte abnormality requiring intervention. No ZACH. Liver function at baseline. EKG showing sinus tachycardia at a rate of 115 beats per minute, QT 354, QTC 489, known right bundle-branch block. No significant change when compared to priors. > pain controlled with Toradol. Patient placed in knee immobilizer and provided with crutches. Educated on how to utilize crutches. Ambulating with steady gait with crutches. Will send naproxen to her pharmacy. Advised to follow-up with ortho. Referral provided. Patient has remained stable throughout ED visit today. Discussed worrisome signs and symptoms and when to return to the ED. All questions answered at this time. Patient is agreeable with disposition and stable for discharge. Medical Decision Making Medical Decision Making MDM Narrative: 58 year old female with pmhx significant for polsubstance abuse presents to the ED today for evaluation of right knee pain/ swelling x2 days. Patient is tachycardic to 118, vitals otherwise WNL. She is nontoxic appearing in no acute distress however appears slightly intoxicated on substances. History of polysubstance use. She is speaking complete sentences. exam is nonfocal. Right knee without overlying erythema. There is mild amount of swelling to knee. No warmth. No crepitus or palpable deformity. Sensation intact throughout. Strength intact. No calf tenderness. No tenderness along plantar fascia or Achilles tendon. 2+ popliteal, DP/TP pulse intact. Full ROM intact to right knee. Ambulating with slight limping gait. Differential diagnosis includes MSK sprain/strain, fracture, dislocation, arthritis. Presentation not consistent with gout, pseudogout, septic joint, Lyme arthritis. Unlikely neurovascular compromise, threat to limb, compartment syndrome. Given tachycardia, EKG ordered. Patient does not endorse any chest pain, palpitations or shortness of breath. Plan for basic blood work, x-ray right knee, pain control and re-evaluation. Differential Diagnosis Differential Diagnoses: The differential diagnosis associated with the presentation includes as above. Admission/Observation Not indicated. Lab Data MDM Lab Attestation statement: I reviewed the patient's lab results. as above. 06/18/24 15:27 06/18/24 15:27 Labs: Lab Results 06/18/24 Range/Units 15:27 WBC 8.2 (4.8-10.8) X10*3/uL RBC 4.40 (4.20-5.50) X10*6/uL Hgb 15.2 (12.0-16.0) g/dl Hct 44.5 (37.0-47.0) % MCV 101.1 H (80.0-98.0) fL MCH 34.5 H (27.0-33.0) pg MCHC 34.2 (31.0-35.0) g/dl RDW 12.6 (11.0-16.0) % Plt Count 220 (160-400) X10*3/uL MPV 8.6 L (9.4-12.3) fL Immature Gran % (Auto) 0.4 (0.0-0.4) % Neut % (Auto) 69.4 (45-73) % Lymph % (Auto) 24.1 (20-40) % Dickens % (Auto) 4.8 (2-11) % Eos % (Auto) 0.9 (0-4) % Baso % (Auto) 0.4 (0-2) % Lymph # (Auto) 2.0 (1.2-4.9) X10*3/uL Dickens # (Auto) 0.4 (0.1-1.2) X10*3/uL Eos # (Auto) 0.1 (0.0-0.4) X10*3/uL Baso # (Auto) 0.0 (0.0-0.2) X10*3/uL Abs Immat Gran (auto) 0.03 (0.00-0.03) X10*3/uL Absolute Neuts (auto) 5.7 (2.0-8.3) x10*3/uL Absolute Nucleated RBC 0.000 (0.0-0.012) X10*3/uL Nucleated RBC % (auto) 0.0 (0.0-0.2) /100WBC Sodium 142 (135-145) mmol/L Potassium 4.5 (3.3-5.1) mmol/L Chloride 105 (96-108) mmol/L Carbon Dioxide 27 (22-29) mmol/L Anion Gap 15 (12-20) BUN 16 (9-16) mg/dL Creatinine 0.81 (0.5-1.4) mg/dL Estim Creat Clear Calc 20.4 Estimated GFR > 60 Random Glucose 114 (60-115) mg/dL Calcium 10.6 H (8.4-10.2) mg/dL Magnesium 2.0 (1.6-2.6) mg/dL Total Bilirubin 0.4 (0.0-1.0) mg/dL AST 76 H (5-31) U/L ALT 114 H (0-31) U/L Alkaline Phosphatase 86 (39-117) U/L Total Protein 7.6 (6.5-8.0) g/dL Albumin 4.3 (3.5-5.0) g/dL Independent Interpretation I performed an independent interpretation of an: Plain X-Ray Interpretation: xr right knee without fracture. there is an effusion. Radiology Impression Discussion of test interpretation with radiology: I have reviewed the radiologist's reading. Radiologist Impression: EXAMINATION: XR KNEE, RIGHT CLINICAL INFORMATION: right knee pain s/p injury COMPARISON: None available. TECHNIQUE: Four views of the right knee. FINDINGS: Moderate joint effusion. Alignment is anatomic. Joint spaces are maintained. No abnormal soft tissue calcification. XR/XR knee RT 4V IMPRESSION: Moderate joint effusion. Electronically signed by: Ольга Kramer MD 06/18/2024 04:39 PM [facility] Independent Historian Clinical information obtained from an independent historian. History obtained from or confirmed by: Friend External Record Review External record reviewed: Inpatient record Prescription Management I considered prescription management with: Pain Medication (naproxen) Chronic Conditions Patient?s care impacted by: Other (polysubstance abuse) Social Determinants Patient?s care significantly limited by Social Determinants of Health including: Other Social Determinant of Health Procedures Orthopedic Splinting/Casting Injury #1: Side: right Lower Extremity Injury Location: knee Lower Extremity Immobilizer: knee immobilizer Other Orthopedic Equipment: crutches Critical Care Time Critical Care Time Critical Care Time: No Discharge Plan Discharge Clinical Impression: Right knee sprain Qualifiers: Encounter type: initial encounter Patient Disposition: Home, Self-Care Instructions: Knee Sprain (ED), How to Use an Elastic Bandage (ED) Additional Instructions: You were evaluated in the ED today for right knee pain. You blood work is reassuring. The xray of your right knee shows moderate swelling. No fracture. You likely sprained your knee. You were placed in a knee immobilizer today and provided with crutches. Please do not bear weight on your right leg until you follow up with the orthopedic doctor. You have been provided with a referral, call them to make an appointment. They will not call you. Naproxen has been sent to your pharmacy. Take this as needed for pain/ discomfort. Do not take this with other NSAIDs such as ibuprofen or aleve as this can cause increased risk of bleeding. You may also take Tylenol. Return with any new or worsening symptoms. In the case of an emergency call 911. Prescriptions: New naproxen 500 mg tablet 500 mg PO Q12H PRN (Reason: pain (scale score 1-3)) Qty: 20 0RF No Action oxycodone 20 mg tablet,oral only,ext.rel.12 hr 1 tab PO Q12H amitriptyline 50 mg Tablet 50 mg PO TID PRN (Reason: pain) Referrals: [facility] [Provider Group] - 3 days (knee sprain/ effusion) Discharge Date/Time: 06/18/24 17:09 Print Language: Indonesian
[2024-06-18 15:32] LABS: MANUAL DIFF FLAG NO
[2024-06-18 15:34] LABS: Basophils Percent Auto 0.4 % (0-2); Eosinophils Absolute Auto 0.1 X10*3/uL (0.0-0.4); Eosinophils Percent Auto 0.9 % (0-4); Hematocrit 44.5 % (37.0-47.0); Hemoglobin 15.2 g/dl (12.0-16.0); Imm Gran Abs Auto 0.03 X10*3/uL (0.00-0.03); Imm Gran Pct Auto 0.4 % (0.0-0.4); Lymphocytes Percent Auto 24.1 % (20-40); Mean Corpuscular HGB Conc 34.2 g/dl (31.0-35.0); Mean Corpuscular Hemoglobin 34.5 pg (27.0-33.0); Mean Corpuscular Volume 101.1 fL (80.0-98.0); Mean Platelet Volume 8.6 fL (9.4-12.3); Monocytes Absolute Auto 0.4 X10*3/uL (0.1-1.2); Monocytes Percent Auto 4.8 % (2-11); Neutrophils Absolute Auto 5.7 x10*3/uL (2.0-8.3); Neutrophils Percent Auto 69.4 % (45-73); Platelet Count 220 X10*3/uL (160-400); Red Cell Distribution Width 12.6 % (11.0-16.0); White Blood Count 8.2 X10*3/uL (4.8-10.8)
[2024-06-18 15:58] LABS: Albumin Level 4.3 g/dL (3.5-5.0); Anion Gap 15 (12-20); Aspartate Amino Transferase 76 U/L (5-31); Bilirubin Total 0.4 mg/dL (0.0-1.0); Blood Urea Nitrogen 16 mg/dL (9-16); Calcium 10.6 mg/dL (8.4-10.2); Carbon Dioxide 27 mmol/L (22-29); Chloride 105 mmol/L (96-108); Creatinine Clr Calc Pharmacy 20.4; Estimated Glomerular Filt Rate > 60; Glucose Random 114 mg/dL (60-115); Potassium 4.5 mmol/L (3.3-5.1); Sodium 142 mmol/L (135-145); Total Protein 7.6 g/dL (6.5-8.0)
[2024-06-18 16:19] LABS: Alanine Aminotransferase 114 U/L (0-31); Alkaline Phosphatase 86 U/L (39-117)
[2024-06-18] MEDS: Ketorolac Tromethamine 30 MG/ML VIAL IM (17:02)
[2024-06-18 17:07] VITALS: BP 160/97; PULSE 114; RESP 20; TEMP 36.6; O2SAT 96
== END 2024-06-18 17:09 | disposition home or self-care (01) ==
PROVIDERS: Physician Assistant Medical; Emergency Provider Emergency Medicine
DX: S83.91XA Sprain of unspecified site of right knee, initial encounter (principal); M25.561 Pain in right knee; R00.0 Tachycardia, unspecified; X58.XXXA Exposure to other specified factors, initial encounter; Y93.89 Activity, other specified; Y92.512 Supermarket, store or market as the place of occurrence of the external cause; Y99.8 Other external cause status; F17.210 Nicotine dependence, cigarettes, uncomplicated; Z79.899 Other long term (current) drug therapy
CPT/HCPCS: 29505; 36415; 73564; 80053; 83735; 85025; 93005; 96372; 99283; 99284; J1885

== ENCOUNTER → 2024-06-18 15:10 | Outpatient (BNV) | payer OTHER, SELFPAY | PROVIDERS: Emergency Provider Emergency Medicine; Visit Provider Internal Medicine Cardiovascular Disease | DX: R00.0 Tachycardia, unspecified (principal); I45.19 Other right bundle-branch block; R94.31 Abnormal electrocardiogram [ECG] [EKG] | CPT/HCPCS: 93010 ==

== ENCOUNTER 2024-07-09 09:02 | Outpatient (REF) | payer OTHER, SELFPAY ==
--- NOTE | ~2024-07-09 | XR_ITS ---
CLINICAL HISTORY: M25.569 - Pain in unspecified knee AP standing view of the bilateral knees COMPARISON: None FINDINGS: Limited AP view of the bilateral knees. Mild right knee medial joint space narrowing. Small osteophytes present along the lateral compartment of the right knee. Visualized portions of the distal right femur and proximal right tibia and fibula appear intact. Mild left knee medial joint space narrowing. Small osteophytes present along the medial compartment of the left knee. Visualized portions of the distal left femur and proximal left tibia and fibula appear intact. IMPRESSION: 1. Limited AP imaging of the bilateral knees. Within limits of study no evidence of acute injury to the knees. 2. Mild degenerative changes of the bilateral knees. This document has been electronically signed by: Maximiliano Marquez MD on 07/13/2024 15:04:33
--- NOTE | ~2024-07-09 | XR_ITS ---
CLINICAL HISTORY: M25.569 - Pain in unspecified knee Single view of the right knee. COMPARISON: XR bilateral AP knees dated 07/10/24 at 08:09 EST FINDINGS: Limited sunrise view of the patella was obtained. Patellar enthesophyte present. Patellofemoral joint spaces are maintained. Visualized portions of the patella and femur appear intact. IMPRESSION: 1. Limited single view of the patella was obtained. Within limits of study, no evidence of acute injury. This document has been electronically signed by: Maximiliano Marquez MD on 07/13/2024 16:40:49
== END 2024-07-09 09:03 | disposition home or self-care (01) ==
LOC: HO.HOSX 09:02
PROVIDERS: Visit Provider Physician Assistant
DX: Z13.89 Encounter for screening for other disorder (principal)
CPT/HCPCS: 73560

== ENCOUNTER 2024-07-10 08:01 | Outpatient (AMB) | payer OTHER, SELFPAY ==
--- NOTE | 2024-07-10 08:04 | MHC.OFFVIS ---
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 Patient reports while she was shopping at the grocery store, she was pushing the car which went off the crib and made go back. She states her knee feels a little better. She was given a immobilize knee brace which kept slipping down. Patient has tried taking naproxen whch gives her relief. 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 The patient presented to the ED on 06/18/24 for right knee pain and edema ongoing for 2 days. The patient?s right knee struck in the cart and her knee ?bent back?, while shopping at the grocery store. She developed right knee pain since then. X-rays of the right knee were obtained. She was placed in a knee immobilizer and provided with crutches. She was recommended to remain non-weight bearing. She was prescribed naproxen 500 mg PO Q12H PRN. While in the office today, the patient reports that she feels her right knee is mildly improved. She states she was provided a knee brace in the ER which kept slipping down from her knee. She has tried naproxen which was prescribed in the ER with pain relief. The patient has a medical history of polysubstance abuse. 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 No tenderness to palpation on the medial or lateral joint lines. No tenderness to palpation over the patellar or quad tendon. No palpable defect. Crepitus felt with range of motion. Assessment & Plan Assessment & Plan (1) Contusion of right knee: Code(s): S80.01XA - Contusion of right knee, initial encounter Category: Medical Plan Ms. Mallory is a 58-year-old female who presents in the office today, as a new patient, for an evaluation of a right knee sprain. The patient presented to the ED on 06/18/24 for right knee pain and edema ongoing for 2 days. The patient?s right knee struck in the cart and her knee ?bent back?, while shopping at the grocery store. She developed right knee pain since then. X-rays of the right knee were obtained. She was placed in a knee immobilizer and provided with crutches. She was recommended to remain non-weight bearing. She was prescribed naproxen 500 mg PO Q12H PRN. While in the office today, the patient reports that she feels her right knee is mildly improved. She states she was provided a knee brace in the ER which kept slipping down from her knee. She has tried naproxen which was prescribed in the ER with pain relief. The patient has a medical history of polysubstance abuse. The patient will discontinue the knee immobilizer at this time. She will perform a range of motion exercises. She may bear weight as tolerated. I have sent a prescription for Celebrex 200 mg PO BID to her pharmacy. She will stop taking naproxen or any other anti-inflammatories while taking Celebrex. Follow-up will be PRN, or sooner if needed. X-rays of the right knee, which were obtained while in the office today and were reviewed by me, Jeannie Sumner PA-C, revealed: No acute fracture or dislocation. Patellofemoral arthritis. Orders: Orders XR knee RT 2V Today M25.569 - Pain in unspecified knee XR knee LT 1V Today M25.569 - Pain in unspecified knee Medications: New celecoxib (Celebrex) 200 mg PO BID 60 caps 0RF 30 days Patient Instructions: Scribed by Marisa Daniels, spanish medical interpreter, for Jeannie Sumner PA-C on 07/10/24 at 8:30 am EST. Coding Level of Care Code New Pt Level 3 (30763) Diagnoses Contusion of right knee S80.01XA
== END 2024-07-10 08:43 | disposition home or self-care (01) ==
PROVIDERS: Visit Provider Physician Assistant
DX: S80.01XA Contusion of right knee, initial encounter (principal)
CPT/HCPCS: 99203

== ENCOUNTER → 2024-07-10 08:01 | Outpatient (BNVA) | payer OTHER, SELFPAY | PROVIDERS: Visit Provider Physician Assistant | DX: S83.91XA Sprain of unspecified site of right knee, initial encounter (principal); W22.8XXA Striking against or struck by other objects, initial encounter; Y93.9 Activity, unspecified; Y92.9 Unspecified place or not applicable; Y99.9 Unspecified external cause status | CPT/HCPCS: 99202 ==

== ENCOUNTER → 2024-07-10 08:09 | Outpatient (BNV) | payer OTHER, SELFPAY | PROVIDERS: Visit Provider Radiology Diagnostic Radiology | DX: M17.0 Bilateral primary osteoarthritis of knee (principal) | CPT/HCPCS: 73560 ==

== ENCOUNTER 2024-07-10 15:13 | Outpatient (REF) | payer OTHER, SELFPAY ==
--- NOTE | ~2024-07-10 | XR_ITS ---
CLINICAL HISTORY: M25.569 - Pain in unspecified knee 1 view right knee Comparison: DX - XR KNEE RT 1V - 07/10/24 08:09 EST Findings: Bones intact. No dislocations. Periarticular osteophyte formation at the patellofemoral compartment. No radiopaque foreign body. IMPRESSION: 1. No acute findings. 2. Osteoarthritis. This document has been electronically signed by: Timur Rodrigez MD on 08/13/2024 15:27:17
--- NOTE | ~2024-07-10 | XR_ITS ---
CLINICAL HISTORY: M25.562 - Pain in left knee AP standing view of bilateral knees Comparison: None Findings: No fractures or dislocations. Tricompartmental periarticular osteophyte formation, indicating osteoarthritis. No joint effusion. No radiopaque foreign body. IMPRESSION: 1. No acute findings. This document has been electronically signed by: Timur Rodrigez MD on 08/13/2024 15:27:45
== END 2024-07-10 15:14 | disposition home or self-care (01) ==
LOC: HO.HOSX 15:13
PROVIDERS: Visit Provider Physician Assistant
DX: M17.11 Unilateral primary osteoarthritis, right knee (principal); M25.562 Pain in left knee
CPT/HCPCS: 73560

== ENCOUNTER → 2024-08-12 15:19 | Outpatient (BNV) | payer OTHER, SELFPAY | PROVIDERS: Visit Provider Radiology Diagnostic Radiology | DX: M25.562 Pain in left knee (principal); M25.561 Pain in right knee | CPT/HCPCS: 73560 ==